=== PATIENT | female | born 2000 | race American Indian/Alaskan Native ===

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

== ENCOUNTER 2023-08-02 09:48 | Emergency (ER) | payer OTHER ==
[2023-08-02] MEDS ORDERED: SODIUM CHLORIDE 0.9% 1,000 ML IV STA (10:14)
--- NOTE | 2023-08-02 10:19 | ED ---
Dizziness HPI - General Chief Complaint: Dizziness Stated Complaint: lightheaded Time Seen by Provider: 08/02/23 10:07 Source: patient, family, RN notes reviewed Mode of arrival: ambulatory Limitations: no limitations - History of Present Illness Initial Comments: Patient is a 22-year-old female presented ER with chief complaint dizziness. Patient reports that when she woke up this morning she felt extremely dizzy and like she was about to pass out. Patient denies any syncopal episodes. Patient has no significant past medical history. Patient did report that she started her menstrual cycle recently and it is mildly heavy. She reports that she goes through about 3 tampons per day. Patient denies any recent fevers, chills, night sweats. Patient does endorse mild chest pain currently. Patient denies any headache, double or blurred vision, shortness of breath, abdominal pain, dysuria, peripheral edema. - Related Data Home Medications Medication Instructions Recorded Confirmed No Known Home Medications 08/02/23 08/02/23 Allergies Allergy/AdvReac Type Severity Reaction Status Date / Time No Known Allergies Allergy Verified 08/02/23 11:35 Review of Systems ROS Statement: Those systems with pertinent positive or pertinent negative responses have been documented in the HPI. ROS Other: All systems not noted in ROS Statement are negative. Past Medical History Past Medical History: No Reported History History of Any Multi-Drug Resistant Organisms: None Reported Past Surgical History: No Surgical Hx Reported Past Psychological History: No Psychological Hx Reported Smoking Status: Never smoker Past Alcohol Use History: None Reported Past Drug Use History: None Reported General Exam Limitations: no limitations General appearance: alert, in no apparent distress Head exam: Present: atraumatic, normocephalic, normal inspection Respiratory exam: Present: normal lung sounds bilaterally. Absent: respiratory distress, wheezes, rales, rhonchi, stridor Cardiovascular Exam: Present: regular rate, normal rhythm, normal heart sounds. Absent: systolic murmur, diastolic murmur, rubs, gallop, clicks GI/Abdominal exam: Present: soft, normal bowel sounds. Absent: distended, tenderness, guarding, rebound, rigid Back exam: Present: normal inspection Neurological exam: Present: alert, oriented X3, CN II-XII intact Psychiatric exam: Present: normal affect, normal mood Skin exam: Present: warm, pallor, other (Numerous dark red linear scars noted on forearms and upper arms. ) Course Vital Signs 08/02/23 08/02/23 08/02/23 09:49 12:34 14:05 Temperature 97.5 F L 98.2 F Pulse Rate 105 H 70 Respiratory 18 18 Rate Blood Pressure 82/55 96/66 102/70 O2 Sat by Pulse 100 98 Oximetry Medical Decision Making - Medical Decision Making Was pt. sent in by a medical professional or institution (, PA, ASSISTANT PROFESSOR OF DRAMA, urgent c are, hospital, or halfway...) When possible be specific @ -No Did you speak to anyone other than the patient for history (EMS, parent, family, police, friend...)? What history was obtained from this source @ -Mother provided some HPI Did you review nursing and triage notes (agree or disagree)? Why? @ -I reviewed and agree with nursing and triage notes Were old charts reviewed (outside hosp., previous admission, EMS record, old EKG, old radiological studies, urgent care reports/EKG's, halfway records)? Report findings @ -No old charts were reviewed Differential Diagnosis (chest pain, altered mental status, abdominal pain women, abdominal pain men, vaginal bleeding, weakness, fever, dyspnea, syncope, headache, dizziness, GI bleed, back pain, seizure, CVA, palpatations, mental health, musculoskeletal)? @ -Differential Dizziness: Benign paroxysmal positional Vertigo, Menieres disease, otitis media, acoustic neuroma, vertebrobasilar insufficiency, cerebellar stroke, encephalitis, hypovolemic, arrhythmia, coronary artery syndrome, anemia, this is not meant to be an all-inclusive list EKG interpreted by me (3pts min.). @ -As above X-rays interpreted by me (1pt min.). @ -None done CT interpreted by me (1pt min.). @ -None done U/S interpreted by me (1pt. min.). @ -None done What testing was considered but not performed or refused? (CT, X-rays, U/S, labs)? Why? @ -None What meds were considered but not given or refused? Why? @ -None Did you discuss the management of the patient with other professionals (professionals i.e. , MOSES, ASSISTANT PROFESSOR OF DRAMA, lab, RT, psych nurse, social research assistant, rn radiation oncology, teacher, chief green officer, case management assistant)? Give summary @ -No Was smoking cessation discussed for >3mins.? @ -No Was critical care preformed (if so, how long)? @ -No Were there social determinants of health that impacted care today? How? (Homelessness, low income, unemployed, alcoholism, drug addiction, transportation, low edu. Level, literacy, decrease access to med. care, half-way, rehab)? @ -No Was there de-escalation of care discussed even if they declined (Discuss DNR or withdrawal of care, Hospice)? DNR status @ -No What co-morbidities impacted this encounter? (DM, HTN, Smoking, COPD, CAD, Cancer, CVA, ARF, Chemo, Hep., AIDS, mental health diagnosis, sleep apnea, morbid obesity)? @ -None Was patient admitted / discharged? Hospital course, mention meds given and route, prescriptions, significant lab abnormalities, going to OR and other pertinent info. @ -Discharge. Patient is a 22-year-old female presented ER with chief complaint of dizziness. Upon examination, this patient's blood pressure was 82/55 repeat was 102/64. Physical exam was significant for patient was mildly pale and there were multiple healing excoriations noted on both forearms. When asked about this patient states that this is from a long time ago and she denies any current thoughts of hurting herself or others. Labs obtained in the ER were unimpressive. Urine did have a large amount of blood which is contributed to patient's current menstruation. Viral swabs obtained in the ER were negative. EKG showed normal sinus rhythm with T-wave inversions in V1-V3 otherwise no other ST segment or T-wave abnormalities present. Patient did receive 1 L of IV fluids. Orthostatic blood pressures were taken with appropriate responses to positional changes. I discussed laboratory findings with patient and her mother, at bedside. I advised patient to increase hydration and salt intake as this may be due too low blood pressure. I advised her to take positional changes slowly. Return parameters were discussed. Patient will be discharged in stable condition with follow-up to PCP. Patient and mother, at bedside, expressed understanding and agreement with care plan. Undiagnosed new problem with uncertain prognosis? @ -No Drug Therapy requiring intensive monitoring for toxicity (Heparin, Nitro, Insulin, Cardizem)? @ -No Were any procedures done? @ -No Diagnosis/symptom? @ -Dizziness Acute, or Chronic, or Acute on Chronic? @ -Acute Uncomplicated (without systemic symptoms) or Complicated (systemic symptoms)? @ -Uncomplicated Side effects of treatment? @ -No Exacerbation, Progression, or Severe Exacerbation? @ -No Poses a threat to life or bodily function? How? (Chest pain, [place], [place], pneumonia, PE, COPD, DKA, ARF, appy, cholecystitis, CVA, Diverticulitis, Homicidal, Suicidal, threat to staff... and all critical care pts) @ -No - Lab Data Result diagrams: 08/02/23 10:25 08/02/23 10:25 Lab Results 08/02/23 08/02/23 08/02/23 Range/Units 10:25 10:25 10:25 WBC 6.4 (4.0-11.0) k/uL RBC 3.92 (3.80-5.40) m/uL Hgb 12.5 (11.4-16.0) gm/dL Hct 37.1 (34.0-46.0) % MCV 94.7 (80.0-100.0) fL MCH 31.9 (25.0-35.0) pg MCHC 33.7 (31.0-37.0) g/dL RDW 12.0 (11.5-15.5) % Plt Count 234 (150-450) k/uL MPV 8.1 Sodium 139 (137-145) mmol/L Potassium 3.5 (3.5-5.1) mmol/L Chloride 105 (98-107) mmol/L Carbon Dioxide 19 L (22-30) mmol/L Anion Gap 15 mmol/L BUN 29 H (7-17) mg/dL Creatinine 0.68 (0.52-1.04) mg/dL Est GFR (CKD-EPI)AfAm >90 (>60 ml/min/1.73 sqM) Est GFR (CKD-EPI)NonAf >90 (>60 ml/min/1.73 sqM) Glucose 124 H (74-99) mg/dL Calcium 9.4 (8.4-10.2) mg/dL Total Bilirubin 0.9 (0.2-1.3) mg/dL AST 20 (14-36) U/L ALT 15 (4-34) U/L Alkaline Phosphatase 64 (38-126) U/L Total Protein 7.5 (6.3-8.2) g/dL Albumin 4.5 (3.5-5.0) g/dL Urine Color Light Yellow Urine Appearance Cloudy H (Clear) Urine pH 5.5 (5.0-8.0) Ur Specific [place] 1.018 (1.001-1.035) Urine Protein Trace H (Negative) Urine Glucose (UA) Negative (Negative) Urine Ketones Trace H (Negative) Urine Blood Large H (Negative) Urine Nitrite Negative (Negative) Urine Bilirubin Negative (Negative) Urine Urobilinogen <2.0 (<2.0) mg/dL Ur Leukocyte Esterase Negative (Negative) Urine RBC 2 (0-5) /hpf Urine WBC 4 (0-5) /hpf Ur Squamous Epith Cells 22 H (0-4) /hpf Urine Bacteria Rare H (None) /hpf Urine Mucus Occasional H (None) /hpf Influenza Type A (PCR) (Not Detectd) Influenza Type B (PCR) (Not Detectd) RSV (PCR) (Not Detectd) SARS-CoV-2 (PCR) (Not Detectd) 08/02/23 Range/Units 10:25 WBC (4.0-11.0) k/uL RBC (3.80-5.40) m/uL Hgb (11.4-16.0) gm/dL Hct (34.0-46.0) % MCV (80.0-100.0) fL MCH (25.0-35.0) pg MCHC (31.0-37.0) g/dL RDW (11.5-15.5) % Plt Count (150-450) k/uL MPV Sodium (137-145) mmol/L Potassium (3.5-5.1) mmol/L Chloride (98-107) mmol/L Carbon Dioxide (22-30) mmol/L Anion Gap mmol/L BUN (7-17) mg/dL Creatinine (0.52-1.04) mg/dL Est GFR (CKD-EPI)AfAm (>60 ml/min/1.73 sqM) Est GFR (CKD-EPI)NonAf (>60 ml/min/1.73 sqM) Glucose (74-99) mg/dL Calcium (8.4-10.2) mg/dL Total Bilirubin (0.2-1.3) mg/dL AST (14-36) U/L ALT (4-34) U/L Alkaline Phosphatase (38-126) U/L Total Protein (6.3-8.2) g/dL Albumin (3.5-5.0) g/dL Urine Color Urine Appearance (Clear) Urine pH (5.0-8.0) Ur Specific [place] (1.001-1.035) Urine Protein (Negative) Urine Glucose (UA) (Negative) Urine Ketones (Negative) Urine Blood (Negative) Urine Nitrite (Negative) Urine Bilirubin (Negative) Urine Urobilinogen (<2.0) mg/dL Ur Leukocyte Esterase (Negative) Urine RBC (0-5) /hpf Urine WBC (0-5) /hpf Ur Squamous Epith Cells (0-4) /hpf Urine Bacteria (None) /hpf Urine Mucus (None) /hpf Influenza Type A (PCR) Not Detected (Not Detectd) Influenza Type B (PCR) Not Detected (Not Detectd) RSV (PCR) Not Detected (Not Detectd) SARS-CoV-2 (PCR) Not Detected (Not Detectd) - EKG Data -: EKG Interpreted by Me EKG Comments: EKG taken at 10:10 shows a sinus rhythm with inverted Twaves in V1-V3. Ventricular rate 61, WV interval 138, QRS duration 100, QT/QTC 421/423. Disposition Clinical Impression: Dizziness Disposition: HOME SELF-CARE Condition: Stable Instructions (If sedation given, give patient instructions): Dizziness (ED) Additional Instructions: Please increase hydration and salt intake. Please return to the Emergency Department if symptoms worsen or any other concerns. Is patient prescribed a controlled substance at d/c from ED?: No Referrals: None,Stated [Primary Care Provider] - 1-2 days Time of Disposition: 13:36
[2023-08-02 10:33] LABS: HCT 37.1 % (34.0-46.0); HGB 12.5 gm/dL (11.4-16.0); MCH 31.9 pg (25.0-35.0); MCHC 33.7 g/dL (31.0-37.0); MCV 94.7 fL (80.0-100.0); Mean Platelet Volume 8.1; Platelet Count 234 k/uL (150-450); RBC 3.92 m/uL (3.80-5.40); WBC 6.4 k/uL (4.0-11.0)
[2023-08-02 10:46] VITALS: RESP 18
[2023-08-02 11:11] LABS: ALT 15 U/L (4-34); AST 20 U/L (14-36); African American GFR (CKD) >90 (>60 ml/min/1.73 sqM); Albumin 4.5 g/dL (3.5-5.0); Alkaline Phosphatase 64 U/L (38-126); Anion Gap 15 mmol/L; Blood Urea Nitrogen 29 mg/dL (7-17); Calcium 9.4 mg/dL (8.4-10.2); Carbon Dioxide 19 mmol/L (22-30); Chloride 105 mmol/L (98-107); Glucose 124 mg/dL (74-99); Non-African American GFR(CKD) >90 (>60 ml/min/1.73 sqM); Potassium 3.5 mmol/L (3.5-5.1); Sodium 139 mmol/L (137-145); Total Bilirubin 0.9 mg/dL (0.2-1.3); Total Protein 7.5 g/dL (6.3-8.2)
[2023-08-02 13:07] LABS: Appearance,Urine Cloudy (Clear); Bacteria,Urine Rare /hpf; Bilirubin,Urine Negative (Negative); Blood,Urine Large (Negative); Color,Urine Light Yellow; Glucose,Urine (UA) Negative (Negative); Ketones,Urine Trace (Negative); Leukocyte Esterase,Urine Negative (Negative); Mucus,Urine Occasional /hpf; Nitrite,Urine Negative (Negative); PH, Urine 5.5 (5.0-8.0); Protein,Urine Trace (Negative); RBC,Urine 2 /hpf (0-5); Specific Gravity,Urine 1.018 (1.001-1.035); Squamous Epithelial Cell,Urine 22 /hpf (0-4); Urobilinogen,Urine <2.0 mg/dL (<2.0); WBC,Urine 4 /hpf (0-5)
[2023-08-02 14:09] VITALS: BP 102/70; PULSE 70; TEMP 98.2
== END 2023-08-02 14:08 | disposition home or self-care (01) ==
LOC: EC 09:48
DX: R42 Dizziness and giddiness (principal); Z20.822 Contact with and (suspected) exposure to COVID-19
CPT/HCPCS: 36415; 80053; 81001; 85027; 87636; 93005; 96360; 96361; 99284

== ENCOUNTER 2023-11-10 16:11 | Inpatient (IN) | payer MEDICAID, OTHER ==
--- NOTE | 2023-11-10 16:53 | ED ---
General Adult HPI - General Chief complaint: Psychiatric Symptoms Stated complaint: Suicidal Time Seen by Provider: 11/10/23 16:30 Source: patient, RN notes reviewed Mode of arrival: ambulatory Limitations: no limitations - History of Present Illness Initial comments: 23-year-old female presents to the emergency department with mother for evaluation of suicidal ideation. Patient states that she has had suicidal thoughts for a long time. Reports that her thoughts have become more vivid and she is afraid that she will act on them. She does report that she was recently started on Zoloft about 1 month ago. Does report an extensive history of self- harm with scars to her arms and legs from prior cutting. - Related Data Home Medications Medication Instructions Recorded Confirmed Sertraline [Zoloft] 25 mg PO DAILY 11/10/23 11/10/23 Allergies Allergy/AdvReac Type Severity Reaction Status Date / Time No Known Allergies Allergy Verified 11/10/23 21:17 Review of Systems ROS Statement: Those systems with pertinent positive or pertinent negative responses have been documented in the HPI. ROS Other: All systems not noted in ROS Statement are negative. Past Medical History Past Medical History: No Reported History History of Any Multi-Drug Resistant Organisms: None Reported Past Surgical History: No Surgical Hx Reported Past Psychological History: Depression Smoking Status: Never smoker Past Alcohol Use History: None Reported Past Drug Use History: None Reported General Exam Limitations: no limitations General appearance: alert, in no apparent distress, anxious Head exam: Present: atraumatic, normocephalic, normal inspection Eye exam: Present: normal appearance, PERRL, EOMI. Absent: scleral icterus, conjunctival injection, periorbital swelling ENT exam: Present: normal exam, mucous membranes moist Neck exam: Present: normal inspection. Absent: tenderness, meningismus, lymphadenopathy Respiratory exam: Present: normal lung sounds bilaterally. Absent: respiratory distress, wheezes, rales, rhonchi, stridor Cardiovascular Exam: Present: normal rhythm, tachycardia, normal heart sounds. Absent: systolic murmur, diastolic murmur, rubs, gallop, clicks Extremities exam: Present: full ROM, normal capillary refill, other (scars from self harm to arms and legs) Back exam: Present: normal inspection Neurological exam: Present: alert, oriented X3 Psychiatric exam: Present: normal affect, normal mood Skin exam: Present: warm, dry, intact, other (erythematous scars to forearms and legs). Absent: normal color, rash Course Vital Signs 11/10/23 11/10/23 16:24 16:57 Temperature 98.2 F 98.5 F Pulse Rate 101 H 101 H Respiratory 18 18 Rate Blood Pressure 148/78 127/73 O2 Sat by Pulse 99 98 Oximetry Medical Decision Making - Medical Decision Making Was pt. sent in by a medical professional or institution (, [employer], QUILLER MACHINE FIXER, urgent care, hospital, or fpc...) When possible be specific @ -[No] Did you speak to anyone other than the patient for history (EMS, parent, family, police, friend...)? What history was obtained from this source @ -[No] Did you review nursing and triage notes (agree or disagree)? Why? @ -[I reviewed and agree with nursing and triage notes] Were old charts reviewed (outside hosp., previous admission, EMS record, old EKG, old radiological studies, urgent care reports/EKG's, fpc records)? Report findings @ -[No old charts were reviewed] Differential Diagnosis (chest pain, altered mental status, abdominal pain women, abdominal pain men, vaginal bleeding, weakness, fever, dyspnea, syncope, he adache, dizziness, GI bleed, back pain, seizure, CVA, palpatations, mental health, musculoskeletal)? @ -[Differential Mental Health Depression, anxiety, bipolar, psychosis, schizophrenia, borderline personality, situational depression, adjustment disorder, behavioral disorder, brain tumor, malingering, substance abuse, encephalopathy, medication reaction, dementia, hypothyroidism, degenerative neurologic disorder, lupus.... This is not meant to be all-inclusive list] EKG interpreted by me (3pts min.). @ -[none] X-rays interpreted by me (1pt min.). @ -[None done] CT interpreted by me (1pt min.). @ -[None done] U/S interpreted by me (1pt. min.). @ -[None done] What testing was considered but not performed or refused? (CT, X-rays, U/S, labs)? Why? @ -[None] What meds were considered but not given or refused? Why? @ -[None] Did you discuss the management of the patient with other professionals (professionals i.e. , PA, QUILLER MACHINE FIXER, lab, RT, psych nurse, social media marketing manager, membership assistant, teacher, catapult and arresting gear officer, pillowcase maker)? Give summary @ -[No] Was smoking cessation discussed for >3mins.? @ -[No] Was critical care preformed (if so, how long)? @ -[No] Were there social determinants of health that impacted care today? How? (Homelessness, low income, unemployed, alcoholism, drug addiction, transportation, low edu. Level, literacy, decrease access to med. care, prison, rehab)? @ -[No] Was there de-escalation of care discussed even if they declined (Discuss DNR or withdrawal of care, Hospice)? DNR status @ -[No] What co-morbidities impacted this encounter? (DM, HTN, Smoking, COPD, CAD, Cancer, CVA, ARF, Chemo, Hep., AIDS, mental health diagnosis, sleep apnea, morbid obesity)? @ -[None] Was patient admitted / discharged? Hospital course, mention meds given and route, prescriptions, significant lab abnormalities, going to OR and other pertinent info. @ -[Patient presented to the emergency department for mental health evaluation. Admits to suicidal ideation. Pending EPS evaluation. EPS recommend inpatient treatment. ] Undiagnosed new problem with uncertain prognosis? @ -[No] Drug Therapy requiring intensive monitoring for toxicity (Heparin, Nitro, Insulin, Cardizem)? @ -[No] Were any procedures done? @ -[No] Diagnosis/symptom? @ -[suicidal ideation] Acute, or Chronic, or Acute on Chronic? @ -acute Uncomplicated (without systemic symptoms) or Complicated (systemic symptoms)? @ -[default] Side effects of treatment? @ -[No] Exacerbation, Progression, or Severe Exacerbation? @ -[No] Poses a threat to life or bodily function? How? (Chest pain, [place], [place], pneumonia, PE, COPD, DKA, ARF, appy, cholecystitis, CVA, Diverticulitis, Homicidal, SuicidalNoyes suicidalf... and all critical care pts) @ -[yes suicidal] - Lab Data Result diagrams: 11/11/23 07:00 11/11/23 07:00 Lab Results 11/10/23 11/10/23 11/10/23 Range/Units 19:40 20:20 20:20 Urine HCG, Qual Not Detected (Not Detectd) Urine Opiates Screen Not Detected (NotDetected) Ur Oxycodone Screen Not Detected (NotDetected) Urine Methadone Screen Not Detected (NotDetected) Ur Barbiturates Screen Not Detected (NotDetected) U Tricyclic Antidepress Not Detected (NotDetected) Ur Phencyclidine Scrn Not Detected (NotDetected) Ur Amphetamines Screen Not Detected (NotDetected) U Methamphetamines Scrn Not Detected (NotDetected) U Benzodiazepines Scrn Not Detected (NotDetected) Urine Cocaine Screen Not Detected (NotDetected) U Marijuana (THC) Screen Not Detected (NotDetected) SARS-CoV-2 (PCR) Not Detected (Not Detectd) Disposition Clinical Impression: Suicidal ideation Disposition: TRANSFER TO PSYCH HOSP/UNIT Condition: Stable Is patient prescribed a controlled substance at d/c from ED?: No
[2023-11-10 20:54] LABS: Amphetamine Screen,Urine Not Detected (NotDetected); Barbiturate Screen,Urine Not Detected (NotDetected); Benzodiazepines Screen,Urine Not Detected (NotDetected); Cocaine Screen,Urine Not Detected (NotDetected); Methadone Screen, Urine Not Detected (NotDetected); Opiate Screen,Urine Not Detected (NotDetected); Oxycodone Screen, Urine Not Detected (NotDetected); Phencyclidine Screen,Urine Not Detected (NotDetected); Tricyclic Antidepressant,Urine Not Detected (NotDetected); Urn Cannabinoid Scrn Not Detected (NotDetected)
[2023-11-10] MEDS ORDERED: ACETAMINOPHEN TAB 325 MG TAB PO PRN (21:49)
[2023-11-10] MEDS ORDERED: HALOPERIDOL LACTATE 5 MG/ML 1 ML VIAL IM PRN (21:49)
[2023-11-10] MEDS ORDERED: haloperidoL 5 MG TAB PO PRN (21:49)
[2023-11-10] MEDS ORDERED: hydrOXYzine HCL 50 MG/ML 1 ML VIAL IM PRN (21:52)
[2023-11-11 08:01] LABS: ALT 12 U/L (4-34); AST 19 U/L (14-36); African American GFR (CKD) >90 (>60 ml/min/1.73 sqM); Albumin 4.5 g/dL (3.5-5.0); Alkaline Phosphatase 54 U/L (38-126); Anion Gap 9 mmol/L; Blood Urea Nitrogen 11 mg/dL (7-17); Calcium 9.3 mg/dL (8.4-10.2); Carbon Dioxide 24 mmol/L (22-30); Chloride 107 mmol/L (98-107); Glucose 83 mg/dL (74-99); Non-African American GFR(CKD) >90 (>60 ml/min/1.73 sqM); Sodium 140 mmol/L (137-145); Total Bilirubin 1.2 mg/dL (0.2-1.3); Total Protein 7.5 g/dL (6.3-8.2)
[2023-11-11 08:02] LABS: Basophils # (A) 0.1 k/uL (0-0.2); Basophils % (A) 1 %; Eosinophils # (A) 0.1 k/uL (0-0.7); Eosinophils % (A) 2 %; HCT 37.4 % (34.0-46.0); HGB 12.6 gm/dL (11.4-16.0); Lymphocytes # (A) 2.1 k/uL (1.0-4.8); Lymphocytes % (A) 36 %; MCHC 33.6 g/dL (31.0-37.0); MCV 95.3 fL (80.0-100.0); Mean Platelet Volume 8.1; Monocytes # (A) 0.3 k/uL (0-1.0); Monocytes % (A) 6 %; Neutrophils # (A) 3.1 k/uL (1.3-7.7); Neutrophils % (A) 54 %; Platelet Count 270 k/uL (150-450); RBC 3.93 m/uL (3.80-5.40); RDW 12.6 % (11.5-15.5); WBC 5.7 k/uL (3.8-10.6)
--- NOTE | 2023-11-11 10:33 | P.HP ---
Psychiatric H&P - . H&P Date: 11/11/23 History & Physical: Allergies Allergy/AdvReac Type Severity Reaction Status Date / Time No Known Allergies Allergy Verified 11/10/23 21:17 Vital Signs Temp 97.8 F 11/11/23 08:37 Pulse 108 H 11/11/23 08:37 Resp 16 11/11/23 08:37 BP 169/98 11/11/23 08:37 Pulse Ox 98 11/10/23 16:57 FiO2 Intake & Output 11/10/23 11/11/23 11/11/23 18:59 06:59 18:59 Weight 58.967 kg 58 kg Laboratory Last Values WBC 5.7 k/uL (3.8-10.6) 11/11/23 07:00 RBC 3.93 m/uL (3.80-5.40) 11/11/23 07:00 Hgb 12.6 gm/dL (11.4-16.0) 11/11/23 07:00 Hct 37.4 % (34.0-46.0) 11/11/23 07:00 MCV 95.3 fL (80.0-100.0) 11/11/23 07:00 MCH 32.0 pg (25.0-35.0) 11/11/23 07:00 MCHC 33.6 g/dL (31.0-37.0) 11/11/23 07:00 RDW 12.6 % (11.5-15.5) 11/11/23 07:00 Plt Count 270 k/uL (150-450) 11/11/23 07:00 MPV 8.1 11/11/23 07:00 Neutrophils % 54 % 11/11/23 07:00 Lymphocytes % 36 % 11/11/23 07:00 Monocytes % 6 % 11/11/23 07:00 Eosinophils % 2 % 11/11/23 07:00 Basophils % 1 % 11/11/23 07:00 Neutrophils # 3.1 k/uL (1.3-7.7) 11/11/23 07:00 Lymphocytes # 2.1 k/uL (1.0-4.8) 11/11/23 07:00 Monocytes # 0.3 k/uL (0-1.0) 11/11/23 07:00 Eosinophils # 0.1 k/uL (0-0.7) 11/11/23 07:00 Basophils # 0.1 k/uL (0-0.2) 11/11/23 07:00 Sodium 140 mmol/L (137-145) 11/11/23 07:00 Potassium 4.0 mmol/L (3.5-5.1) 11/11/23 07:00 Chloride 107 mmol/L (98-107) 11/11/23 07:00 Carbon Dioxide 24 mmol/L (22-30) 11/11/23 07:00 Anion Gap 9 mmol/L 11/11/23 07:00 BUN 11 mg/dL (7-17) 11/11/23 07:00 Creatinine 0.67 mg/dL (0.52-1.04) 11/11/23 07:00 Est GFR (CKD-EPI)AfAm >90 (>60 ml/min/1.73 sqM) 11/11/23 07:00 Est GFR (CKD-EPI)NonAf >90 (>60 ml/min/1.73 sqM) 11/11/23 07:00 Glucose 83 mg/dL (74-99) 11/11/23 07:00 Calcium 9.3 mg/dL (8.4-10.2) 11/11/23 07:00 Total Bilirubin 1.2 mg/dL (0.2-1.3) 11/11/23 07:00 AST 19 U/L (14-36) 11/11/23 07:00 ALT 12 U/L (4-34) 11/11/23 07:00 Alkaline Phosphatase 54 U/L (38-126) 11/11/23 07:00 Total Protein 7.5 g/dL (6.3-8.2) 11/11/23 07:00 Albumin 4.5 g/dL (3.5-5.0) 11/11/23 07:00 TSH 3.510 mIU/L (0.465-4.680) 11/11/23 07:00 Urine HCG, Qual Not Detected (Not Detectd) 11/10/23 20:20 Urine Opiates Screen Not Detected (NotDetected) 11/10/23 20:20 Ur Oxycodone Screen Not Detected (NotDetected) 11/10/23 20:20 Urine Methadone Screen Not Detected (NotDetected) 11/10/23 20:20 Ur Barbiturates Screen Not Detected (NotDetected) 11/10/23 20:20 U Tricyclic Antidepress Not Detected (NotDetected) 11/10/23 20:20 Ur Phencyclidine Scrn Not Detected (NotDetected) 11/10/23 20:20 Ur Amphetamines Screen Not Detected (NotDetected) 11/10/23 20:20 U Methamphetamines Scrn Not Detected (NotDetected) 11/10/23 20:20 U Benzodiazepines Scrn Not Detected (NotDetected) 11/10/23 20:20 Urine Cocaine Screen Not Detected (NotDetected) 11/10/23 20:20 U Marijuana (THC) Screen Not Detected (NotDetected) 11/10/23 20:20 SARS-CoV-2 (PCR) Not Detected (Not Detectd) 11/10/23 19:40 11/11/23 08:56 IDENTIFYING DATA: Patient is a single, unemployed, 23-year-old - female who is presenting with suicidal ideation HPI: Patient was brought into the ED by her mother due to suicidal ideation. She was noted to have several superficial lacerations on bilateral forearms and legs. She endorsed suicidal ideation that had been worsening over the past few weeks and reported having increased urge to act on suicidal ideation. She was guarded while in the ED and would not disclose a plan but revealed that it is a "graphic "plan. Ruby is hesitant, often tearful, and has eye contact darting around. She says she has been having low mood over the past 3 years. She says a stressor was her father dying 2 years ago from overdose. She reports having a sense of purposelessness, hopelessness, and not being aware of what she should do with her life. Since graduating high school, she says that she has not been doing anything with her life. She reports sleeping from around 6AM-1PM. She denies trouble with falling asleep or staying asleep. She endorses low energy, low concentration, low motivation, and low appetite ongoing for the past 1 year. She use to enjoy drawing, writing, and watching TV, but says these have not been enjoyable. Patient was started on Zoloft 25 mg 1 month ago. Since being on this medication, she states that she has found herself to be able to express herself more. However, she has noticed her suicidal ideation to have become "more vivid ". Patient currently admits to suicidal ideation with a plan to cut herself deeply. She endorses anxiety. In particular, she is worried about being scrutinized by others, fears that she will embarrass herself, and states she is particularly anxious when interacting with groups of people. She reports this has been ongoing since her childhood. She admits to paranoia about others speaking about her and worries about getting bullied. She states that she is not close to her family members and does not speak with them often at this time. Although patient has a family history of bipolar disorder, she denies symptoms of irene. In psychiatric review of systems, she denies homicidal ideation. She denies access to weapons. She denies auditory and visual hallucinations. PSYCH HX: Previous psychiatrist: [facility] Past tx: Zoloft 25 mg for the past 1 month - she felt it allowed her to express herself more. She has also felt SI has become more vivid. Hospitalizations: Denies past hospitalizations NSSI: Cutting since she was 13 years old SA: Denies PMH: Denies chronic medical issues ALLERGIES: NKDA Head injuries: Denies Seizures: Denies SUBSTANCE HX: Alcohol: Denies Tobacco: Denies Cannabis: Denies Denies using other substances SOCIAL/LEGAL HX: Patient reports having been born in [facility] and says she currently resides with her mother. She says she has 4 siblings. Her father used to be a insurance producer but was on Social Security income after an injury. She says he 2 years ago due using a combination of alcohol and other substances in an overdose. Her mother works in a half-way. Patient is not currently employed. She was never and says she is currently single. Highest level of education: 12th grade Legal problems: Denies FAM PSYCH HX: Father: bipolar disorder, alcohol use disorder, OD Older Sister: bipolar disorder Suicide attempts: Denies MENTAL STATUS EXAM: General Appearance: Patient appears to be stated age is alert, directable, and attempts to cooperate. Patient appears to have poor hygiene and grooming. Behavior: Patient is seated without any agitated behavior. Eyes darting left and right, poor eye contact Speech: Patient's speech is hesitant, low volume, almost muttered Mood/Affect: Patient reports their mood is depressed, affect is congruent and tearful Suicidality/Homicidality: Patient denies having any homicidal ideation intent or plan. Endorses suicidal ideation Perceptions: Patient denies any visual hallucinations and denies any auditory hallucinations Though content/process: Mostly linear and other times slightly unrelated to question; some paranoia Memory and concentration: AOX3, grossly intact for the purposes of this session. Judgment and insight: Fair STRENGTHS/WEAKNESSES: Strength is seeking help and no substance use. Weakness is severity of symptoms INTELLECT: average IMPRESSIONS: Depressive disorder, unspecified (bipolar disorder vs prodromal symptoms vs MDD) Social anxiety disorder PLAN: -Patient is admitted under voluntary status to MHU for stabilization of psychiatric symptoms and safety. Patient signed adult voluntary form and medica tion consent and is placed in patient's chart. -Medications : - Start Lexapro 5 mg daily for mood. Will monitor carefully for irene - Start melatonin 5 mg qHS for sleep. Discussed sleep hygiene & circadian rhythm -Patient was counselled on substance abuse and recommend continuing abstinence from alcohol -Patient was informed of the risks, benefits and side effects of the medication and patient verbally consented to taking the medications. Patient signed med consent form and was placed in chart. -Internal Medicine consult to perform medical evaluation and physical. -SW on board for discharge planning. Encourage patient to participate in groups to work on coping skills. 11/11/23 08:59 ``
[2023-11-11] MEDS: ESCITALOPRAM 5 MG TAB PO SCH (12:34)
[2023-11-11] MEDS: MELATONIN 5 MG TABLET PO SCH (21:31)
--- NOTE | 2023-11-12 01:57 | P.CONS ---
History of Present Illness - Reason for Consult Consult date: 11/12/23 - History of Present Illness The patient is a 23-year-old female with no known PMH who had presented to the emergency room with complaints of depression and suicidal ideation. The patient was admitted to the mental health unit where she was seen and evaluated accompanied by mental health unit RN. The patient denied any physical complaints at the time of interview. She denied experiencing chest discomfort, shortness of breath, fever, chills, cough, nausea, vomiting, abdominal pain, diarrhea. She also denied tobacco, alcohol, or substance use. She denies any prior medical conditions. Review of systems: Pertinent positives and negatives as discussed in HPI, a complete review of systems was performed and all other systems are negative. Physical examination: General: non toxic, no distress, appears at stated age, normal weight Derm: no unusual rashes/lesions, no unusual ecchymoses, warm, dry Head: atraumatic, normocephalic, symmetric Eyes: EOMI, no lid lag, anicteric sclera ENT: Nose and ears atraumatic, no thrush, no pharyngeal erythema Neck: trachea midline, supple Mouth: no lip lesion, mucus membranes moist Cardiovascular: S1S2 reg, no murmur, no edema Lungs: CTA bilateral, no rhonchi, no rales , no accessory muscle use Abdominal: soft, nontender to palpation, no guarding Ext: no gross muscle atrophy, no contractures, Neuro: No gross focal neuro deficits noted Psych: Alert, oriented, appropriate affect Assessment: Depression and suicidal ideation Imaging: EKG in the emergency room revealed sinus rhythm at 84 bpm with T wave inversion leads V1 to V3 as reviewed by me. Data Review: Laboratory evaluation was reviewed and revealed WBC count 5.7, hemoglobin 12.6, sodium 140, potassium 4.0, BUN 11, creatinine 0.67, urine toxicology unremarkable. Plan: Defer management of depression and suicidal ideation to the primary psychiatry service Thank you for allowing us to participate in the care of this patient. We will follow peripherally. Do not hesitate to contact us with questions. Someone can be reached from the [facility] hospitalist group at all hours of the day at [phone]. Past Medical History Past Medical History: No Reported History History of Any Multi-Drug Resistant Organisms: None Reported Past Surgical History: No Surgical Hx Reported Past Anesthesia/Blood Transfusion Reactions: No Reported Reaction Past Psychological History: Depression Smoking Status: Never smoker Past Alcohol Use History: None Reported Past Drug Use History: None Reported - Past Family History Mother Family Medical History: Hyperlipidemia Medications and Allergies Home Medications Medication Instructions Recorded Confirmed Type Sertraline [Zoloft] 25 mg PO DAILY 11/10/23 11/10/23 History Allergies Allergy/AdvReac Type Severity Reaction Status Date / Time No Known Allergies Allergy Verified 11/10/23 21:17 Physical Exam Vitals: Vital Signs Temp Pulse Resp BP 11/11/23 08:37 97.8 F 108 H 16 169/98 Intake and Output 11/11/23 11/11/23 11/12/23 14:59 22:59 06:59 Other: Weight 58 kg Results CBC & Chem 7: 11/11/23 07:00 11/11/23 07:00
--- NOTE | 2023-11-12 10:37 | P.PN ---
Progress Note - Text Progress Note Date: 11/12/23 Interval History: Patient was agreeable to speak with financial underwriter bedside. Ruby continues to be i solating to her room and appears to be restless during assessment due to anxiety. She reports that her mood is "fine". She asks about discharge and was encouraged to work on coping skills and to go over the fears of the future that contributed to her recent exacerbation in depression and anxiety. Discussed mindful breathing exercises for anxiety. Patient reports having issues with falling asleep last night and was agreeable with trazodone being added today. She reports reduced appetite and was encouraged to eat regular meals. At this time patient denies any suicidal or homicidal ideation, intent or plan. Patient denies any auditory, visual hallucinations and denies any paranoia or delusions. Patient denies any side effects from the medications and has been compliant with meds. Vital Signs Temp 97.8 F 11/11/23 08:37 Pulse 108 H 11/11/23 08:37 Resp 16 11/11/23 08:37 BP 169/98 11/11/23 08:37 Pulse Ox 98 11/10/23 16:57 FiO2 Intake & Output 11/11/23 11/12/23 11/12/23 18:59 06:59 18:59 Weight 58 kg Mental Status Exam: General Appearance: Patient appears to be stated age is alert, directable, and cooperative. Fair hygiene and poor grooming. Wearing pants and a shirt. Behavior: Restless, fidgeting, eyes darting left and right with poor eye contact Speech: Patient's speech is fluent and nonpressured. Speech: Patient's speech is hesitant, low volume, almost muttered Mood/Affect: Patient reports their mood is depressed, affect is congruent and tearful Suicidality/Homicidality: Patient denies having any homicidal ideation intent or plan. Denies suicidal ideation Perceptions: Patient denies any visual hallucinations and denies any auditory hallucinations Though content/process: Mostly linear and other times slightly unrelated to question; some paranoia Memory and concentration: AOX3, grossly intact for the purposes of this session. Judgment and insight: Fair Assessment Depressive disorder, unspecified (prodromal symptoms vs MDD unlikely to be bipolar) Social anxiety disorder PLAN: -Patient is admitted under voluntary status to MHU for stabilization of psychiatric symptoms and safety. Patient signed adult voluntary form and medication consent and is placed in patient's chart. -Medications : - Continue Lexapro 5 mg daily for mood. Will monitor carefully for irene - Continue melatonin 5 mg qHS for sleep. Discussed sleep hygiene & circadian rhythm - Start trazodone 50 mg QHS for sleep -Discussed mindful breathing strategies and square breathing meditation -Patient was informed of the risks, benefits and side effects of the medication and patient verbally consented to taking the medications. Patient signed med consent form and was placed in chart. -Internal Medicine consult to perform medical evaluation and physical. -SW on board for discharge planning. Encourage patient to participate in groups to work on coping skills.
[2023-11-12] MEDS: traZODone HCL 50 MG TAB PO SCH (21:07)
--- NOTE | 2023-11-13 11:50 | P.PN ---
Progress Note - Text Progress Note Date: 11/13/23 Interval History: Patient was seen wandering the hallways and was directable and agreeable to milo louis with senior grant writer in the office. Patient states that her mood is "fine". Patient very guarded and hesitant. Patient has poor eye contact, very soft tone of voice. Patient states that she has been to one group. Patient states that she is sleeping ok, and eating her meals. Patient was minimizing her symptoms. When asked about delusions and paranoia patient did not want to explain them. Denies any changes or appetite, states that she is sleeping fairly. At this time patient denies any suicidal or homicidal ideations, intent or plan. Patient denies any auditory, visual hallucinations and denies any paranoia. Patient denies any side effects from the medications and has been compliant with meds. Mental Status Exam: General Appearance: Patient appears to be stated age is alert, directable, and cooperative. Fair hygiene and grooming. Wearing pants and a shirt. Behavior: Restless, fidgeting, eyes darting left and right , swaying in chair, with poor eye contact, childlike Speech: Patient's speech is fluent and nonpressured. Speech: Patient's speech is hesitant, low volume, almost muttered Mood/Affect: Patient reports their mood is depressed, affect is congruent Suicidality/Homicidality: Patient denies having any homicidal ideation intent or plan. Denies suicidal ideation Perceptions: Patient denies any visual hallucinations and denies any auditory hallucinations Though content/process: Mostly linear and other times slightly unrelated to question; some paranoia Memory and concentration: AOX3, grossly intact for the purposes of this session. Judgment and insight: Fair Assessment Depressive disorder, unspecified (prodromal symptoms vs MDD unlikely to be bipolar) Social anxiety disorder PLAN: -Patient is admitted under voluntary status to MHU for stabilization of psychia tric symptoms and safety. Patient signed adult voluntary form and medication consent and is placed in patient's chart. -Medications : increase Lexapro 10 mg daily for mood. melatonin 5 mg qHS for sl eep, trazodone 50 mg QHS for sleep Add Ablilfy 2.5 mg daily for mood stabilization/psychosis -SW on board for discharge planning. Encourage patient to participate in groups to work on coping skills.
[2023-11-13] MEDS: ARIPiprazole 5 MG TAB PO SCH (11:56)
[2023-11-13] MEDS: ESCITALOPRAM 5 MG TAB PO STA (11:56)
[2023-11-14] MEDS: ESCITALOPRAM 10 MG TAB PO SCH (08:35)
--- NOTE | 2023-11-14 11:19 | P.PN ---
Progress Note - Text Progress Note Date: 11/14/23 Interval History: Patient was seen wandering the hallways and was directable and agreeable to sp heriberto with underwriter solicitation director in the office. Patient states that she feels tired and sick. Reported by nursing staff that she is not going to meals. Patient very guarded and hesitant. Patient has very soft tone of voice. Patient states she slept around 7 hours last night. Patient was minimizing her symptoms. Patient is focused on discharge. She can not sit still in the chair. Very fidgety. Moving her feet around, no eye contact. Looking at the floor. Patient is not attending groups, underwriter solicitation director explained the importance of attending them, and getting out of her room. Patient continues to isolate in her room and not socializing with any other patients. At this time patient denies any suicidal or homicidal ideations, intent or plan. Patient Aims that she is showering every other day. denies any auditory, visual hallucinations and denies any paranoia. Patient denies any side effects from the medications and has been compliant with meds. Mental Status Exam: General Appearance: Patient appears to be stated age is alert, directable, and cooperative. Fair hygiene and grooming. Wearing pants and a shirt. Behavior: Restless, fidgeting, eyes darting left and right , swaying in chair, with poor eye contact, childlike Speech: Patient's speech is fluent and nonpressured. Speech: Patient's speech is hesitant, low volume, almost muttered Mood/Affect: Patient reports their mood is depressed, affect is congruent Suicidality/Homicidality: Patient denies having any homicidal ideation intent or plan. Denies suicidal ideation Perceptions: Patient denies any visual hallucinations and denies any auditory hallucinations Though content/process: Mostly linear and other times slightly unrelated to question; some paranoia Memory and concentration: AOX3, grossly intact for the purposes of this session. Judgment and insight: poor Assessment Depressive disorder, unspecified (prodromal symptoms vs MDD unlikely to be bipolar) Social anxiety disorder PLAN: -Patient is admitted under voluntary status to MHU for stabilization of psychiatric symptoms and safety. Patient signed adult voluntary form and medication consent and is placed in patient's chart. -Medications : Lexapro 10 mg daily for mood. melatonin 5 mg qHS for sleep, trazodone 50 mg QHS for sleep, increase Ablilfy 5 mg daily for mood stabilization/psychosis -SW on board for discharge planning. Encourage patient to participate in groups to work on coping skills. Possible discharge the end of the week, if patient improves psychiatrically.
[2023-11-14] MEDS: ARIPiprazole 5 MG TAB PO ONE (11:24)
[2023-11-15 07:41] LABS: Appearance,Urine Clear (Clear); Bilirubin,Urine Negative (Negative); Blood,Urine Negative (Negative); Color,Urine Colorless; Glucose,Urine (UA) Negative (Negative); Ketones,Urine 2+ (Negative); Leukocyte Esterase,Urine Negative (Negative); Nitrite,Urine Negative (Negative); PH, Urine 6.5 (5.0-8.0); Protein,Urine Negative (Negative); Specific Gravity,Urine 1.007 (1.001-1.035); Urobilinogen,Urine <2.0 mg/dL (<2.0)
[2023-11-15] MEDS: ARIPiprazole 5 MG TAB PO SCH ×2 (08:29→21:06)
[2023-11-15 11:56] VITALS: BMI 22.4
[2023-11-15] MEDS ORDERED: MELATONIN 3 MG TABLET PO SCH (21:00)
[2023-11-15] MEDS: MELATONIN 5 MG TABLET PO SCH (21:06)
--- NOTE | 2023-11-16 11:44 | P.PN ---
Progress Note - Text Progress Note Date: 11/15/23 Interval History: Patient was seen in her room, and was directable and agreeable to speak with devin martel in the office. Patient states that she feels super tired today, and claims to sleep well at night. Patient stated she ate breakfast this morning. She isolates herself during meals, and eats in the hallway. Patient laughs inappropriately randomly during the interview. Patient states her mood and anxiety are "fine". Staffing Consultant asked patient about her delusions of her life being hacked and used for a TV show. She states she can not explain exactly why she thought this, and she thinks that her life was a live stream, on the internet, and that there was synchronies of that and her life. Patient admits to cutting, because she feels lonely, and has always self harmed, just more the past few months. Patient continues to isolate in her room and not socializing with any other patients. She states that she feels that she does not belong here, and she thinks that she just needs her medications. She states that her therapist said inpatient treatment is not good for someone who has social anxiety. Staffing Consultant explained to the patient how serious her suicide attempt was, and explained the importance of participating in the milieu. Patient verbalized understanding. At this time patient denies any suicidal or homicidal ideations, intent or plan. Patient claims that she is showering every other day, however, it is not noted that she does. She denies any auditory, visual hallucinations and denies any paranoia. Patient denies any side effects from the medications and has been compliant with meds. Mental Status Exam: General Appearance: Patient appears to be stated age is alert, directable, and cooperative. Fair hygiene and grooming. Wearing pants and a shirt. Behavior: Restless, fidgeting, no eye contact , swaying in chair, with poor eye contact, kicking her feet, childlike defiant Speech: Patient's speech is fluent and nonpressured. Speech: Patient's speech is hesitant, low volume, almost muttered, defiant Mood/Affect: Patient reports their mood is depressed, affect is congruent Suicidality/Homicidality: Patient denies having any homicidal ideation intent or plan. Denies suicidal ideation Perceptions: Patient denies any visual hallucinations and denies any auditory hallucinations Though content/process: Mostly linear and other times slightly unrelated to question; some paranoia Memory and concentration: AOX3, grossly intact for the purposes of this session. Judgment and insight: poor Assessment Depressive disorder, unspecified (prodromal symptoms vs MDD unlikely to be bipolar) Social anxiety disorder PLAN: -Patient is admitted under voluntary status to MHU for stabilization of psychiatric symptoms and safety. Patient signed adult voluntary form and medication consent and is placed in patient's chart. -Medications : change Lexapro 10 mg qhs for mood. melatonin 5 mg qHS for sleep, trazodone 50 mg QHS for sleep, change and increase Ablilfy 7.5 mg qhs for mood stabilization/psychosis -SW on board for discharge planning. Encourage patient to participate in groups to work on coping skills. Possible discharge the end of the week, if patient improves psychiatrically.
--- NOTE | 2023-11-16 11:44 | P.PN ---
Progress Note - Text Progress Note Date: 11/16/23 Interval History: Patient was seen in her room, and was directable and agreeable to speak with devin martel in the office. Patient states that she feels tired again today, and claims to have slept last night. Patient states she does not know how she feels. She continues to laugh inappropriately during the interview. When advertising copy writer asked why she was laughing, she stated "I don't know". Patient continues to isolate to her room. She states she just wants to go home. Patient states she is anxious. At this time patient denies any suicidal or homicidal ideations, intent or plan. Patient is not caring for ADL's. Not showering, not brushing her hair. She denies any auditory, visual hallucinations and denies any paranoia. Patient denies any side effects from the medications and has been compliant with meds. she is continuing to keep to herself in her room and not socializing with others. Mental Status Exam: General Appearance: Patient appears to be stated age is alert, directable, and cooperative. Poor hygiene and grooming. Wearing pants and a shirt. Behavior: Restless, fidgeting, no eye contact , swaying in chair, kicking her feet, childlike defiant. laughs at times. Speech: Patient's speech is fluent and nonpressured. Mood/Affect: Patient reports their mood is "ok", affect is congruent and constricted Suicidality/Homicidality: Patient denies having any homicidal ideation intent or plan. Denies suicidal ideation Perceptions: Patient denies any visual hallucinations and denies any auditory hallucinations Though content/process: Mostly linear and other times slightly unrelated to question; some paranoia, guarded. Memory and concentration: AOX3, grossly intact for the purposes of this session. Judgment and insight: poor Assessment: Depressive disorder, unspecified (prodromal symptoms vs MDD unlikely to be bipolar) Social anxiety disorder PLAN: -Patient is admitted under voluntary status to [facility] for stabilization of psychiatric symptoms and safety. Patient signed adult voluntary form and medication consent and is placed in patient's chart. -Medications : Lexapro 10 mg qhs for mood. melatonin 5 mg qHS for sleep, trazodone 50 mg QHS for sleep, increase Ablilfy 10 mg qhs for mood stabilization/psychosis -SW on board for discharge planning. Encourage patient to participate in groups to work on coping skills. Likely keep patient over the weekend, until she improves psychiatrically, likely discharge next week. [facility] logistics supply officer will be notified to partake in meeting tomorrow with the team to discuss treatment planning and patient's baseline.
[2023-11-16] MEDS: hydrOXYzine pamoate 25 MG CAP PO PRN (21:18)
[2023-11-16] MEDS: ESCITALOPRAM 10 MG TAB PO SCH (21:57)
[2023-11-16] MEDS: ARIPiprazole 10 MG TAB PO SCH (21:57)
--- NOTE | 2023-11-17 11:30 | P.PN ---
Progress Note - Text Progress Note Date: 11/17/23 Interval History: Patient was seen in her room, and was directable and agreeable to speak with devin martel in the office. Patient states that she is fine today. Patient states that her heart races at night time. Then laughs inappropriately. Continues to have no eye contact, looking at the floor, kicking her feet on the floor. Information Technology Program Manager reviewed vitals, heart rate is mildly elevated, will decrease the dose of Abilify. Patient has started going to minimal groups claims that she did go to the morning group however did not say anything in it. Still continues to isolate mostly to her room. At this time patient denies any suicidal or homicidal ideations, intent or plan. Patient is not caring for ADL's. Not showering, not brushing her hair. She denies any auditory, visual hallucinations and denies any paranoia. Patient denies any side effects from the medications and has been compliant with meds. she is continuing to keep to herself in her room and not socializing with others. Mental Status Exam: General Appearance: Patient appears to be stated age is alert, directable, and cooperative. Poor hygiene and grooming. Wearing pants and a shirt. Behavior: Restless, fidgeting, no eye contact, swaying in chair, kicking her feet, childlike defiant. laughs at times. Speech: Patient's speech is fluent and nonpressured. Mood/Affect: Patient reports their mood is "ok", affect is congruent and constricted Suicidality/Homicidality: Patient denies having any homicidal ideation intent or plan. Denies suicidal ideation Perceptions: Patient denies any visual hallucinations and denies any auditory hallucinations Though content/process: Mostly linear and other times slightly unrelated to question; mild paranoia, guarded. vague Memory and concentration: AOX3, grossly intact for the purposes of this session. Judgment and insight: poor, improving mildly Assessment: Depressive disorder, unspecified (prodromal symptoms vs MDD unlikely to be bipolar) Social anxiety disorder PLAN: -Patient is admitted under voluntary status to [facility] for stabilization of psychiatric symptoms and safety. Patient signed adult voluntary form and medication consent and is placed in patient's chart. -Medications : increase Lexapro 15 mg qhs for mood, plan to continue increasing. melatonin 5 mg qHS for sleep, trazodone 50 mg QHS for sleep, decrease Ablilfy 7.5 mg daily for mood stabilization/psychosis due to likely a/e -SW on board for discharge planning. Encourage patient to participate in groups to work on coping skills. Will likely discharge Monday vs Monday. SW will speak with mother to come up with a solid discharge plan and gather feedback from visitation.
[2023-11-17] MEDS: ESCITALOPRAM 20 MG TAB PO SCH (21:46)
[2023-11-18] MEDS: ARIPiprazole 5 MG TAB PO SCH (09:17)
--- NOTE | 2023-11-18 10:29 | P.PN ---
Progress Note - Text Progress Note Date: 11/18/23 Interval history: Patient was seen laying in her bed this morning and was directable and agreeable to speak with senior mortgage underwriter. She states that she still feels uncomfortable with other patients and has high levels of anxiety. States that her mood is improving. Continues to be fairly superficial, concrete and childlike. She was fairly focused on discharge. States that she is sleeping better, claims that her side effect of palpitations have decreased since yesterday. At this time patient denies any suicidal or homicidal ideations intent or plan. Denies any Auditory or visual hallucinations. Patient denies any side effects from the medications and has been compliant with meds. Mental status exam: General Appearance: Patient appears to be stated age is alert, directable, and cooperative. Superficial. Behavior: No agitated behavior. Patient is calm and directable superficial Speech: Patient's speech is fluent and nonpressured. Mood/Affect: Mood is improving mildly, affect is congruent and constricted. Suicidality/Homicidality: Patient denies having any suicidal or homicidal idea tion intent or plan. Perceptions: Patient denies any auditory or visual hallucinations. Though content/process: There is no evidence of any delusional thought content and thought process is linear and goal-directed. [place], evasive Memory and concentration: AOX3, grossly intact for the purposes of this session Judgment and insight: Poor, improving mildly Assessment/Plan: Continue with current diagnosis. Patient continues to meet criteria for inpatient psychiatric admission for symptom stabilization and safety. Patient will be maintained on current psychotropic medication regimen, will decrease Abilify to 5 mg daily to avoid increase in anxiety and tachycardia. Monitor for medication compliance and for any psychotropic medication side effects. Will continue to monitor ongoing response to treatment. Encouraged participation in milieu. Likely discharge Monday versus Monday, will need family meeting with parent prior to discharge.
[2023-11-19] MEDS: ARIPiprazole 5 MG TAB PO SCH (08:53)
--- NOTE | 2023-11-19 10:09 | P.PN ---
Progress Note - Text Progress Note Date: 11/19/23 Interval history: Patient was seen laying in her bed this morning and was directable and agreeable to speak with advertising writer. She continues to be fairly superficial with advertising writer, today was more argumentative and focused on discharge. Tooth Inspector attempted to explain to patient that we need to have a family meeting to discuss safety planning at home and assess her baseline however patient did not understand this and continue to question advertising writer and demanded discharge. States that her mood is improving. Continues to be fairly superficial, concrete and childlike. States that she is sleeping better, claims that her side effect of palpitations have decreased and no longer present. At this time patient denies any suicidal or homicidal ideations intent or plan. Denies any Auditory or visual hallucinations. Patient denies any side effects from the medications and has been compliant with meds. Mental status exam: General Appearance: Patient appears to be stated age is alert, directable, and cooperative. Superficial. And argumentative Behavior: No agitated behavior. Patient is calm and directable superficial Speech: Patient's speech is fluent and nonpressured. Mood/Affect: Mood is improving mildly, affect is congruent and constricted. Suicidality/Homicidality: Patient denies having any suicidal or homicidal ideation intent or plan. Perceptions: Patient denies any auditory or visual hallucinations. Though content/process: There is no evidence of any delusional thought content and thought process is linear and goal-directed. [place], evasive, argumentative today Memory and concentration: AOX3, grossly intact for the purposes of this session Judgment and insight: Chronically poor, improving mildly Assessment/Plan: Continue with current diagnosis. Patient continues to meet criteria for inpatient psychiatric admission for symptom stabilization and safety. Patient will be maintained on current psychotropic medication regimen. Monitor for medication compliance and for any psychotropic medication side effects. Will continue to monitor ongoing response to treatment. Encouraged participation in milieu. Likely discharge Monday versus Monday, will need family meeting with parent prior to discharge to ensure safety at home and assess for baseline.
--- NOTE | 2023-11-20 11:35 | P.PN ---
Progress Note - Text Progress Note Date: 11/20/23 Interval History: Patient was seen in her room, and was directable and agreeable to speak with devin martel at the bedside. Patient states she is fine today. continues to laugh inappropriately during interview. Still continues to isolate mostly to her room. She continues to be fairly concrete in her answers. Patient stated that she showered yesterday. Focused on discharge. Dial Buffer told patient we need to have a family meeting prior, and that social work has been unsuccessful at reaching the patients mother, who is her guardian. Patient asked if we could contact her grandmother, insurance underwriter told patient to fill out the release of information form for us to be able to talk to her. At this time patient denies any suicidal or homicidal ideations, intent or plan. She denies any auditory, visual hallucinations and denies any paranoia. Patient denies any side effects from the medications and has been compliant with meds. she is continuing to keep to herself in her room and not socializing with others. Mental Status Exam: General Appearance: Patient appears to be stated age is alert, directable, and cooperative. Poor hygiene and grooming. Wearing pants and a shirt. Behavior: Restless, fidgeting, no eye contact, swaying in chair, kicking her feet, childlike defiant. laughs at times. Speech: Patient's speech is fluent and nonpressured. Mood/Affect: Patient reports their mood is "fine", affect is congruent and constricted Suicidality/Homicidality: Patient denies having any homicidal ideation intent or plan. Denies suicidal ideation Perceptions: Patient denies any visual hallucinations and denies any auditory hallucinations Though content/process: Mostly linear concrete; guarded. vague Memory and concentration: AOX3, grossly intact for the purposes of this session. Judgment and insight: Chronically poor/limited, improving mildly Assessment: Depressive disorder, unspecified (prodromal symptoms vs MDD unlikely to be bipolar) Social anxiety disorder PLAN: -Patient is admitted under voluntary status to [facility]HU for stabilization of psychiatric symptoms and safety. Patient signed adult voluntary form and medication consent and is placed in patient's chart. -Medications : increase Lexapro 20 mg qhs for mood. melatonin 5 mg qHS for sleep, trazodone 50 mg QHS for sleep, Ablilfy 5 mg daily for mood stabilization/psychosis -[place] on board for discharge planning. Encourage patient to participate in groups to work on coping skills. Will likely discharge Monday. SW will speak with mother to come up with a solid discharge plan and gather feedback from visitation.
[2023-11-21] MEDS: ESCITALOPRAM 20 MG TAB PO SCH (08:46)
--- NOTE | 2023-11-21 11:53 | P.PN ---
Progress Note - Text Progress Note Date: 11/21/23 Interval History: Patient was seen in her room, and was directable and agreeable to speak with devin martel at the bedside. Patient states she is fine today. Still continues to isolate mostly to her room. She continues to be concrete in her answers, however, according to her mother, this is all baseline for her. Patient is eating some meals, encouraged patient to eat more of her meals. Patient offers no complaints. At this time patient denies any suicidal or homicidal ideations, intent or plan. She denies any auditory, visual hallucinations and denies any paranoia. Patient denies any side effects from the medications and has been compliant with meds. Mental Status Exam: General Appearance: Patient appears to be stated age is alert, directable, and cooperative. improving hygiene and grooming. Wearing pants and a shirt. Behavior: Restless, fidgeting, no eye contact, swaying in chair, kicking her feet, childlike defiant. laughs at times. Speech: Patient's speech is fluent and nonpressured. Mood/Affect: Patient reports their mood is "fine", affect is congruent and constricted Suicidality/Homicidality: Patient denies having any homicidal ideation intent or plan. Denies suicidal ideation Perceptions: Patient denies any visual hallucinations and denies any auditory hallucinations Though content/process: Mostly linear concrete; guarded. Improving mildly Memory and concentration: AOX3, grossly intact for the purposes of this session. Judgment and insight: Chronically poor/limited, improving mildly Assessment: Depressive disorder, unspecified (prodromal symptoms vs MDD unlikely to be bipolar) Social anxiety disorder PLAN: -Patient is admitted under voluntary status to [facility] for stabilization of psychiatric symptoms and safety. Patient signed adult voluntary form and medication consent and is placed in patient's chart. -Medications : Lexapro 20 mg qhs for mood. melatonin 5 mg qHS for sleep, trazodone 50 mg QHS for sleep, Ablilfy 5 mg daily for mood stabilization/psychosis -SW on board for discharge planning. Encourage patient to participate in groups to work on coping skills. Will likely discharge Monday. SW spoke with mother to come up with a solid discharge plan and will likely discharge home tomorrow.
[2023-11-22 07:22] VITALS: BP 110/72; PULSE 84; RESP 14; TEMP 97.9
--- NOTE | 2023-11-22 11:23 | P.DS ---
Providers Date of admission: 11/10/23 21:30 Expected date of discharge: 11/22/23 Attending physician: Ernie Brown MD Consults: 11/10/23 21:49 Consult Physician Routine Consulting Provider: Sugey Physician Consult Reason/Comments: H&P Do you want consulting provider notified?: Yes Primary care physician: Stated None - Discharge Diagnosis(es) (1) Depressive disorder Current Visit: Yes Status: Acute Priority: High (2) Social anxiety disorder Current Visit: Yes Status: Acute Priority: Medium (3) Self mutilating behavior Current Visit: Yes Status: Acute Priority: High Hospital Course: Admission HPI: Admission note was completed by Dr Gutierrez "Patient was brought into the ED by her mother due to suicidal ideation. She was noted to have several superficial lacerations on bilateral forearms and legs. She endorsed suicidal ideation that had been worsening over the past few weeks and reported having increased urge to act on suicidal ideation. She was guarded while in the ED and would not disclose a plan but revealed that it is a "graphic "plan. Ruby is hesitant, often tearful, and has eye contact darting around. She says she has been having low mood over the past 3 years. She says a stressor was her father dying 2 years ago from overdose. She reports having a sense of purposelessness, hopelessness, and not being aware of what she should do with her life. Since graduating high school, she says that she has not been doing anything with her life. She reports sleeping from around 6AM-1PM. She denies trouble with falling asleep or staying asleep. She endorses low energy, low concentration, low motivation, and low appetite ongoing for the past 1 year. She use to enjoy drawing, writing, and watching TV, but says these have not been enjoyable. Patient was started on Zoloft 25 mg 1 month ago. Since being on this medication, she states that she has found herself to be able to express herself more. However, she has noticed her suicidal ideation to have become "more vivid ". Patient currently admits to suicidal ideation with a plan to cut herself deeply. She endorses anxiety. In particular, she is worried about being scrutinized by others, fears that she will embarrass herself, and states she is particularly anxious when interacting with groups of people. She reports this has been ongoing since her childhood. She admits to paranoia about others speaking about her and worries about getting bullied. She states that she is not close to her family members and does not speak with them often at this time. Although patient has a family history of bipolar disorder, she denies symptoms of irene. In psychiatric review of systems, she denies homicidal ideation. She denies access to weapons. She denies auditory and visual hallucinations. " Hospital course: Upon admission to the unit patient was directable and agreeable to commence reza tment and signed adult voluntary form. Patient was fairly timid, mainly kept herself in her room, she did go to 1 or 2 groups, got along well with other patients on the unit and followed unit protocol. Patient was compliant with the medications and denied any side effects throughout hospital course. Patient was started on Lexapro and increased to dose of 20 mg nightly for mood/anxiety, melatonin 5 mg nightly for sleep, trazodone 50 mg nightly for sleep/mood, Abilify p.o. 5 mg daily for mood stabilization/psychosis. Patient was also seen by medical team for history and physical exam. Throughout the course of the hospitalization patient gradually improved with regards to mood, anxiety, suicidal thoughts, sleep and returned back to their baseline level of functioning. On the day of discharge patient denied any suicidal or homicidal ideations intent or plan denied any auditory or visual hallucinations. Patient endorsed wanting to live for her health and her family. The patient denied any access to guns or weapons. Patient denied any paranoia and did not endorse any delusions. Patient does not have a significant history of substance abuse and was counseled on abstaining from all substances including alcohol and marijuana. Patient was also counseled on the medications and need for regular compliance and was encouraged to follow-up with their outpatient appointment for mental health and also for primary care. Prior to discharge a family meeting will be arranged by social work instructor to answer any questions and ensure safety upon discharge. housekeeping laundry worker ensured with patient's mother that the environment at home was safe and that she looked in her room in the house for any razor blades or other sharp objects to reduce the options/opportunity for cutting. Mental status exam: General Appearance: Patient appears to be thin, stated age is alert, pleasant, attempts to cooperate. Patient is in no acute distress and has improved hygiene and grooming Behavior: Patient is calmly seated without any agitated behavior. Fairly poor eye contact. Speech: Patient's speech is fluent and nonpressured. Mood/Affect: Patient reports their mood is "good", affect is congruent and eut hymic. Suicidality/Homicidality: Patient denies having any suicidal or homicidal ideation intent or plan. Perceptions: Patient denies any auditory or visual hallucinations. Though content/process: There is no evidence of any delusional thought content and thought process is linear and goal-directed. [place] Memory and concentration: AOX3, grossly intact for the purposes of this session. Can spell "WORLD" backwards correctly. Judgment and insight: Chronically poor, however has improved with guarded prognosis Impression: Depressive disorder, unspecified (prodromal symptoms vs MDD unlikely to be bipolar) Social anxiety disorder self mutilation behavior Plan: -Continue with discharge today as patient has improved and stabilized psychiatrically and is not currently an imminent threat to herself and/or others. Patient will remain at chronically elevated risk for harm to self and/or others due to her impulsivity history of self harm. -Continue medications: Lexapro 20 mg daily for mood/anxiety, Abilify 5 mg daily for mood stabilization/psychosis, melatonin 5 mg nightly for sleep, trazodone 50 mg nightly for sleep/mood -Patient was counseled on the need for medication compliance and appropriate follow-up at mental health and also primary care for medical issues. Patient verbalized understanding and agreed. -Social work to arrange for and conduct family meeting to ensure safety upon discharge and answer any questions/concerns. Social work also to arrange for patients follow up appointments with [facility] for psychiatric care along with follow up with primary care provider. -Patient counseled on abstaining from recreational drugs and marijuana and alcohol. Was informed/educated on the adverse effects on their physical and mental health. Patient verbally agreed and understood. -Patient was instructed to return to the hospital or seek immediate medical care if their psychiatric or medical symptoms do worsen or reoccur. Allergies Allergy/AdvReac Type Severity Reaction Status Date / Time No Known Allergies Allergy Verified 11/10/23 21:17 Laboratory Results WBC 5.7 k/uL (3.8-10.6) 11/11/23 07:00 RBC 3.93 m/uL (3.80-5.40) 11/11/23 07:00 Hgb 12.6 gm/dL (11.4-16.0) 11/11/23 07:00 Hct 37.4 % (34.0-46.0) 11/11/23 07:00 MCV 95.3 fL (80.0-100.0) 11/11/23 07:00 MCH 32.0 pg (25.0-35.0) 11/11/23 07:00 MCHC 33.6 g/dL (31.0-37.0) 11/11/23 07:00 RDW 12.6 % (11.5-15.5) 11/11/23 07:00 Plt Count 270 k/uL (150-450) 11/11/23 07:00 MPV 8.1 11/11/23 07:00 Neutrophils % 54 % 11/11/23 07:00 Lymphocytes % 36 % 11/11/23 07:00 Monocytes % 6 % 11/11/23 07:00 Eosinophils % 2 % 11/11/23 07:00 Basophils % 1 % 11/11/23 07:00 Neutrophils # 3.1 k/uL (1.3-7.7) 11/11/23 07:00 Lymphocytes # 2.1 k/uL (1.0-4.8) 11/11/23 07:00 Monocytes # 0.3 k/uL (0-1.0) 11/11/23 07:00 Eosinophils # 0.1 k/uL (0-0.7) 11/11/23 07:00 Basophils # 0.1 k/uL (0-0.2) 11/11/23 07:00 Sodium 140 mmol/L (137-145) 11/11/23 07:00 Potassium 4.0 mmol/L (3.5-5.1) 11/11/23 07:00 Chloride 107 mmol/L (98-107) 11/11/23 07:00 Carbon Dioxide 24 mmol/L (22-30) 11/11/23 07:00 Anion Gap 9 mmol/L 11/11/23 07:00 BUN 11 mg/dL (7-17) 11/11/23 07:00 Creatinine 0.67 mg/dL (0.52-1.04) 11/11/23 07:00 Est GFR (CKD-EPI)AfAm >90 (>60 ml/min/1.73 sqM) 11/11/23 07:00 Est GFR (CKD-EPI)NonAf >90 (>60 ml/min/1.73 sqM) 11/11/23 07:00 Glucose 83 mg/dL (74-99) 11/11/23 07:[address] Glu mg/dL 94 mg/dL 11/11/23 07:00 Hemoglobin A1c 4.9 % (<=6.0) 11/11/23 07:00 Calcium 9.3 mg/dL (8.4-10.2) 11/11/23 07:00 Total Bilirubin 1.2 mg/dL (0.2-1.3) 11/11/23 07:00 AST 19 U/L (14-36) 11/11/23 07:00 ALT 12 U/L (4-34) 11/11/23 07:00 Alkaline Phosphatase 54 U/L (38-126) 11/11/23 07:00 Total Protein 7.5 g/dL (6.3-8.2) 11/11/23 07:00 Albumin 4.5 g/dL (3.5-5.0) 11/11/23 07:00 TSH 3.510 mIU/L (0.465-4.680) 11/11/23 07:00 Urine Color Colorless 11/15/23 07:22 Urine Appearance Clear (Clear) 11/15/23 07:22 Urine pH 6.5 (5.0-8.0) 11/15/23 07:22 Ur Specific Gracey 1.007 (1.001-1.035) 11/15/23 07:22 Urine Protein Negative (Negative) 11/15/23 07:22 Urine Glucose (UA) Negative (Negative) 11/15/23 07:22 Urine Ketones 2+ (Negative) H 11/15/23 07:22 Urine Blood Negative (Negative) 11/15/23 07:22 Urine Nitrite Negative (Negative) 11/15/23 07:22 Urine Bilirubin Negative (Negative) 11/15/23 07:22 Urine Urobilinogen <2.0 mg/dL (<2.0) 11/15/23 07:22 Ur Leukocyte Esterase Negative (Negative) 11/15/23 07:22 Urine HCG, Qual Not Detected (Not Detectd) 11/10/23 20:20 Urine Opiates Screen Not Detected (NotDetected) 11/10/23 20:20 Ur Oxycodone Screen Not Detected (NotDetected) 11/10/23 20:20 Urine Methadone Screen Not Detected (NotDetected) 11/10/23 20:20 Ur Barbiturates Screen Not Detected (NotDetected) 11/10/23 20:20 U Tricyclic Antidepress Not Detected (NotDetected) 11/10/23 20:20 Ur Phencyclidine Scrn Not Detected (NotDetected) 11/10/23 20:20 Ur Amphetamines Screen Not Detected (NotDetected) 11/10/23 20:20 U Methamphetamines Scrn Not Detected (NotDetected) 11/10/23 20:20 U Benzodiazepines Scrn Not Detected (NotDetected) 11/10/23 20:20 Urine Cocaine Screen Not Detected (NotDetected) 11/10/23 20:20 U Marijuana (THC) Screen Not Detected (NotDetected) 11/10/23 20:20 SARS-CoV-2 (PCR) Not Detected (Not Detectd) 11/10/23 19:40 Vital Signs Temp 97.9 F 11/22/23 06:57 Pulse 84 11/22/23 06:57 Resp 14 11/22/23 06:57 BP 110/72 11/22/23 06:57 Pulse Ox 100 11/22/23 06:57 FiO2 Intake & Output 11/21/23 11/22/23 11/22/23 18:59 06:59 18:59 Intake Total 437 Balance 437 Intake: Oral 437 Patient Condition at Discharge: Stable Plan - Discharge Summary Discharge Rx Participant: No New Discharge Prescriptions: New ARIPiprazole [Abilify] 5 mg PO DAILY 30 Days #30 tab traZODone HCL [Desyrel] 50 mg PO HS 30 Days #30 tab Escitalopram [Lexapro] 20 mg PO DAILY 30 Days #30 tab Melatonin 5 mg PO HS 30 Days #30 tab hydrOXYzine pamoate [Vistaril] 25 mg PO BID PRN 30 Days #60 cap PRN Reason: Anxiety Discontinued Sertraline [Zoloft] 25 mg PO DAILY Discharge Medication List ARIPiprazole [Abilify] 5 mg PO DAILY 30 Days #30 tab 11/22/23 [Rx] Escitalopram [Lexapro] 20 mg PO DAILY 30 Days #30 tab 11/22/23 [Rx] Melatonin 5 mg PO HS 30 Days #30 tab 11/22/23 [Rx] hydrOXYzine pamoate [Vistaril] 25 mg PO BID PRN 30 Days #60 cap 11/22/23 [Rx] traZODone HCL [Desyrel] 50 mg PO HS 30 Days #30 tab 11/22/23 [Rx] Follow up Appointment(s)/Referral(s): [facility] [Outside] - 11/28/23 12:00 pm (11/27@ 12pm with Coco Garrett 12/04@ 8:30am with Jessica Travis NP) None,Stated [Primary Care Provider] - 1-2 days Activity/Diet/Wound Care/Special Instructions: Avoid the use of street drugs and alcohol. Take all medications as prescribed. When you are in need of refills on your medications, please contact your medical provider and/or outpatient psychiatrist/provider to have this done. Please go to your scheduled outpatient appointment for aftercare treatment. If symptoms return or become worse, call the crisis line at and/or go to the nearest emergency room for evaluation. National Suicide Hotline 501. Discharge Disposition: HOME SELF-CARE
== END 2023-11-22 15:05 | disposition home or self-care (01) | DRG 754 ==
LOC: EC 16:11 → 3MHU 21:30
PROVIDERS: ADMIT Psychiatry & Neurology Psychiatry; ATTEND Psychiatry & Neurology Psychiatry
DX: F32.A Depression, unspecified (principal); F40.10 Social phobia, unspecified; Z91.52 Personal history of nonsuicidal self-harm; R45.851 Suicidal ideations; S51.811A Laceration without foreign body of right forearm, initial encounter; S51.812A Laceration without foreign body of left forearm, initial encounter; S81.812A Laceration without foreign body, left lower leg, initial encounter; S81.811A Laceration without foreign body, right lower leg, initial encounter; X78.9XXA Intentional self-harm by unspecified sharp object, initial encounter; Z79.899 Other long term (current) drug therapy; Z11.52 Encounter for screening for COVID-19; Z71.89 Other specified counseling
CPT/HCPCS: 80053; 80306; 81003; 81025; 82075; 83036; 84443; 85025; 87635; 99285

== ENCOUNTER 2025-03-01 12:28 | Inpatient (IN) | payer MEDICAID, OTHER ==
[2025-03-01 14:02] LABS: Barbiturate Screen,Urine Not Detected (NotDetected); Benzodiazepines Screen,Urine Not Detected (NotDetected); Opiate Screen,Urine Not Detected (NotDetected); Oxycodone Screen, Urine Not Detected (NotDetected); Phencyclidine Screen,Urine Not Detected (NotDetected); Tricyclic Antidepressant,Urine Not Detected (NotDetected); Urn Cannabinoid Scrn Not Detected (NotDetected)
--- NOTE | 2025-03-01 14:13 | ED ---
General Adult HPI - General Chief complaint: Psychiatric Symptoms Stated complaint: Mental Health Eval Time Seen by Provider: 03/01/25 13:20 Source: patient, family, RN notes reviewed, old records reviewed Mode of arrival: ambulatory Limitations: no limitations - History of Present Illness Initial comments: 24-year-old female who presents emergency department for suicidal ideation. Patient has a history of self injuring behavior. Patient is unwilling to disclose all aspects of her suicidal thoughts to myself but apparently has been getting worse lately. Presents with her mother. Patient is unkempt, not making eye contact with myself. Denies any homicidal ideations, intent, plans. Denies any visual or auditory hallucinations. Patient denies any drug use. Denies any alcohol use. Has no other acute complaints.. He has required inpatient psychiatric admission in the past. Presents for further evaluation at this time. - Related Data Previous Rx's Medication Instructions Recorded ARIPiprazole [Abilify] 5 mg PO DAILY 30 Days #30 tab 11/22/23 Escitalopram [Lexapro] 20 mg PO DAILY 30 Days #30 tab 11/22/23 Melatonin 5 mg PO HS 30 Days #30 tab 11/22/23 hydrOXYzine pamoate [Vistaril] 25 mg PO BID PRN 30 Days #60 cap 11/22/23 traZODone HCL [Desyrel] 50 mg PO HS 30 Days #30 tab 11/22/23 Allergies Allergy/AdvReac Type Severity Reaction Status Date / Time No Known Allergies Allergy Verified 11/10/23 21:17 Review of Systems ROS Statement: Those systems with pertinent positive or pertinent negative responses have been documented in the HPI. Review of Systems: CONST: Denies fever EYES: Denies blurry vision ENT: Denies nasal congestion C/V: Denies Chest pain RESP: Denies shortness of breath GI: Denies abdominal pain : Denies dysuria SKIN: Denies rash. MSK: Denies joint pain. NEURO: Denies headache ROS Other: All systems not noted in ROS Statement are negative. Past Medical History Past Medical History: No Reported History History of Any Multi-Drug Resistant Organisms: None Reported Past Surgical History: No Surgical Hx Reported Past Anesthesia/Blood Transfusion Reactions: No Reported Reaction Past Psychological History: Anxiety, Depression Smoking Status: Never smoker Past Alcohol Use History: None Reported Past Drug Use History: None Reported - Past Family History Mother Family Medical History: Hyperlipidemia General Exam - General Exam Comments Initial Comments: General: Appears in no acute distress. Unkempt. Mildly disheveled. HEAD: Normal with no signs of head trauma. EYES: EOMI. ENT: Hearing grossly intact. RESPIRATORY: No respiratory distress. C/V: Regular rate and rhythm. ABD: Abdomen is nondistended. EXT: No obvious deformity. SKIN: No rashes or lesions observed on exposed skin. Bilateral arm scars from self-injuring behavior. No acute injury. NEURO: Alert and oriented. Limitations: no limitations Course Vital Signs 03/01/25 12:31 Temperature 98.3 F Pulse Rate 128 H Respiratory 20 Rate Blood Pressure 113/73 O2 Sat by Pulse 95 Oximetry Medical Decision Making - Medical Decision Making Was pt. sent in by a medical professional or institution (, PA, MANAGER MEAT, urgent care, hospital, or assisted...) When possible be specific @ -No Did you speak to anyone other than the patient for history (EMS, parent, family, police, friend...)? What history was obtained from this source @ -Patient's mother presents with patient and assist with past medical history. Did you review nursing and triage notes (agree or disagree)? Why? @ -I reviewed and agree with nursing and triage notes Were old charts reviewed (outside hosp., previous admission, EMS record, old EKG, old radiological studies, urgent care reports/EKG's, assisted records)? Report findings @ -No old charts were reviewed Differential Diagnosis (chest pain, altered mental status, abdominal pain women, abdominal pain men, vaginal bleeding, weakness, fever, dyspnea, syncope, headache, dizziness, GI bleed, back pain, seizure, CVA, palpatations, mental health, musculoskeletal)? @ -Differential Mental Health Depression, anxiety, bipolar, psychosis, schizophrenia, borderline personality, situational depression, adjustment disorder, behavioral disorder, brain tumor, malingering, substance abuse, encephalopathy, medication reaction, dementia, hypothyroidism, degenerative neurologic disorder, lupus.... This is not meant to be all-inclusive list EKG interpreted by me (3pts min.). @ -None done X-rays interpreted by me (1pt min.). @ -None done CT interpreted by me (1pt min.). @ -None done U/S interpreted by me (1pt. min.). @ -None done What testing was considered but not performed or refused? (CT, X-rays, U/S, labs)? Why? @ -None What meds were considered but not given or refused? Why? @ -None Did you discuss the management of the patient with other professionals (professionals i.e. , PA, MANAGER MEAT, lab, RT, psych nurse, social services manager, gold charmer, teacher, correctional officer sergeant, machine adjuster leader case trim)? Give summary @ -No Was smoking cessation discussed for >3mins.? @ -No Was critical care preformed (if so, how long)? @ -No Were there social determinants of health that impacted care today? How? (Homelessness, low income, unemployed, alcoholism, drug addiction, transportation, low edu. Level, literacy, decrease access to med. care, usp, rehab)? @ -No Was there de-escalation of care discussed even if they declined (Discuss DNR or withdrawal of care, Hospice)? DNR status @ -No What co-morbidities impacted this encounter? (DM, HTN, Smoking, COPD, CAD, Cancer, CVA, ARF, Chemo, Hep., AIDS, mental health diagnosis, sleep apnea, morbid obesity)? @ -None Was patient admitted / discharged? Hospital course, mention meds given and route, prescriptions, significant lab abnormalities, going to OR and other pertinent info. @ -Patient presents for mental health evaluation. He has been more suicidal lately. Patient is unkempt and somewhat disheveled. Vitals are within acceptable limits, was initially mildly tachycardic but this seems to be improved. Likely related to anxiety. BAT is 0. UDS is pending. Sitter ordered. Suicide precautions ordered. At this time, patient medically cleared by myself. Disposition pending psychiatric evaluation. EPS notified of the consult. EPS evaluated patient and determined that she does meet inpatient psychiatric arteria. Patient will be admitted to inpatient psychiatry. Undiagnosed new problem with uncertain prognosis? @ -No Drug Therapy requiring intensive monitoring for toxicity (Heparin, Nitro, Insulin, Cardizem)? @ -No Were any procedures done? @ -No Diagnosis/symptom? @ -Suicidal ideations Acute, or Chronic, or Acute on Chronic? @ -Acute Uncomplicated (without systemic symptoms) or Complicated (systemic symptoms)? @ -Complicated Side effects of treatment? @ -None Exacerbation, Progression, or Severe Exacerbation] @ -No Poses a threat to life or bodily function? @ -Yes - Lab Data Lab Results 03/01/25 Range/Units 13:35 Urine Opiates Screen Not Detected (NotDetected) Ur Oxycodone Screen Not Detected (NotDetected) Urine Methadone Screen Not Detected (NotDetected) Ur Barbiturates Screen Not Detected (NotDetected) U Tricyclic Antidepress Not Detected (NotDetected) Ur Phencyclidine Scrn Not Detected (NotDetected) Ur Amphetamines Screen Not Detected (NotDetected) U Methamphetamines Scrn Not Detected (NotDetected) U Benzodiazepines Scrn Not Detected (NotDetected) Urine Cocaine Screen Not Detected (NotDetected) U Marijuana (THC) Screen Not Detected (NotDetected) Disposition Clinical Impression: Suicidal ideations Disposition: TRANSFER TO PSYCH HOSP/UNIT Condition: Stable Referrals: None,Stated [Primary Care Provider] - 1-2 days
[2025-03-01] MEDS ORDERED: OLANZapine 10 MG VIAL IM PRN (16:09)
[2025-03-01] MEDS ORDERED: ACETAMINOPHEN TAB 325 MG TAB PO PRN (16:09)
[2025-03-01] MEDS ORDERED: MAGNESIUM HYDROXIDE 2,400 MG/30 ML CUP PO PRN (16:09)
[2025-03-01] MEDS ORDERED: IBUPROFEN 600 MG TAB PO PRN (16:09)
[2025-03-01] MEDS ORDERED: OLANZapine 2.5 MG TAB PO PRN (16:09)
[2025-03-01] MEDS ORDERED: MAG HYDROX/AL HYDROX/SIMETH 355 ML BOTTLE PO PRN (16:09)
[2025-03-01] MEDS ORDERED: hydrOXYzine HCL 50 MG/ML 1 ML VIAL IM PRN (16:09)
[2025-03-01] MEDS: LORazepam 1 MG TAB PO STA (16:21)
[2025-03-01 18:31] LABS: Bilirubin,Urine Negative (Negative); Blood,Urine Negative (Negative); Color,Urine Colorless; Glucose,Urine (UA) Negative (Negative); Ketones,Urine Negative (Negative); Leukocyte Esterase,Urine Negative (Negative); Nitrite,Urine Negative (Negative); PH, Urine 7.5 (5.0-8.0); Protein,Urine Negative (Negative); Specific Gravity,Urine 1.006 (1.001-1.035); Urobilinogen,Urine <2.0 mg/dL (<2.0)
[2025-03-02 08:12] LABS: Basophils # (A) 0.04 10*3/uL (0.00-0.10); Basophils % (A) 0.9 %; Eosinophils # (A) 0.11 10*3/uL (0.04-0.35); Eosinophils % (A) 2.4 %; HCT 36.5 % (37.2-46.3); HGB 12.1 g/dL (12.0-15.0); Lymphocytes # (A) 1.21 10*3/uL (0.90-5.00); Lymphocytes % (A) 26.2 %; MCH 30.9 pg (27.0-32.0); MCHC 33.2 g/dL (32.0-37.0); MCV 93.4 fL (80.0-97.0); Monocytes # (A) 0.37 10*3/uL (0.20-1.00); Monocytes % (A) 8.0 %; Neutrophils # (A) 2.88 10*3/uL (1.80-7.70); Neutrophils % (A) 62.3 %; Platelet Count 291 10*3/uL (140-440); RBC 3.91 10*6/uL (4.10-5.20); RDW 12.4 % (11.5-14.5); WBC 4.62 10*3/uL (4.50-10.00)
[2025-03-02 08:29] LABS: ALT 12 U/L (4-34); AST 17 U/L (14-36); African American GFR (CKD) >90 (>60 ml/min/1.73 sqM); Albumin 4.8 g/dL (3.5-5.0); Alkaline Phosphatase 51 U/L (38-126); Anion Gap 8 mmol/L; Blood Urea Nitrogen 11 mg/dL (7-17); Calcium 9.6 mg/dL (8.4-10.2); Carbon Dioxide 27 mmol/L (22-30); Chloride 104 mmol/L (98-107); Glucose 88 mg/dL (74-99); Non-African American GFR(CKD) >90 (>60 ml/min/1.73 sqM); Potassium 4.5 mmol/L (3.5-5.1); Sodium 139 mmol/L (137-145); Total Protein 7.6 g/dL (6.3-8.2)
--- NOTE | 2025-03-02 09:27 | P.HP ---
Psychiatric H&P - . H&P Date: 03/02/25 History & Physical: Allergies Allergy/AdvReac Type Severity Reaction Status Date / Time No Known Allergies Allergy Verified 03/01/25 16:15 Vital Signs Temp 97.1 F L 03/01/25 21:00 Pulse 70 03/01/25 21:00 Resp 16 03/01/25 21:00 BP 84/54 03/01/25 21:00 Pulse Ox 98 03/01/25 21:00 FiO2 Intake & Output 03/01/25 03/02/25 03/02/25 18:59 06:59 18:59 Weight 57.7 kg Laboratory Last Values Urine Color Colorless 03/01/25 13:35 Urine Appearance Clear (Clear) 03/01/25 13:35 Urine pH 7.5 (5.0-8.0) 03/01/25 13:35 Ur Specific Royal 1.006 (1.001-1.035) 03/01/25 13:35 Urine Protein Negative (Negative) 03/01/25 13:35 Urine Glucose (UA) Negative (Negative) 03/01/25 13:35 Urine Ketones Negative (Negative) 03/01/25 13:35 Urine Blood Negative (Negative) 03/01/25 13:35 Urine Nitrite Negative (Negative) 03/01/25 13:35 Urine Bilirubin Negative (Negative) 03/01/25 13:35 Urine Urobilinogen <2.0 mg/dL (<2.0) 03/01/25 13:35 Ur Leukocyte Esterase Negative (Negative) 03/01/25 13:35 Urine Opiates Screen Not Detected (NotDetected) 03/01/25 13:35 Ur Oxycodone Screen Not Detected (NotDetected) 03/01/25 13:35 Urine Methadone Screen Not Detected (NotDetected) 03/01/25 13:35 Ur Barbiturates Screen Not Detected (NotDetected) 03/01/25 13:35 U Tricyclic Antidepress Not Detected (NotDetected) 03/01/25 13:35 Ur Phencyclidine Scrn Not Detected (NotDetected) 03/01/25 13:35 Ur Amphetamines Screen Not Detected (NotDetected) 03/01/25 13:35 U Methamphetamines Scrn Not Detected (NotDetected) 03/01/25 13:35 U Benzodiazepines Scrn Not Detected (NotDetected) 03/01/25 13:35 Urine Cocaine Screen Not Detected (NotDetected) 03/01/25 13:35 U Marijuana (THC) Screen Not Detected (NotDetected) 03/01/25 13:35 SARS-CoV-2 (PCR) Not Detected (Not Detectd) 03/01/25 14:51 Dictation was produced using [employer] dictation software. Please excuse any grammatical, word or spelling errors. IDENTIFYING DATA: Patient is a 24 years old female with past psychiatric history of depression and social anxiety, presenting for suicidal ideation. HPI: Patient presented to the hospital for suicidal ideation, she has a history of self injurious behavior, the patient was guarded and conservative, she did not share much during assessment in the ED, reported that she has been getting worse lately. Per ED note patient is unkempt, not making eye contact, she denied any alcohol or substance use. Per EPS "the patient mother "Chriss" is her guardian at bed side, patient is A/O x 4, was tearful during assessment, states that she did not really have a choice but to come in. Reported having suicidal thoughts with no plan but has been cutting her arms, denies HI or AVH. Patient mother states patient was punching herself in the face and throwing food while saying she wanted to kill herself. Patient does not want to take medication, the patient mother has been taking the patient twice weekly in the month of January for ketamine which did not seem to be effective. Patient has also done DBT with [facility]. Upon evaluation in the unit the patient was in her room, agreed to speak with the conventional underwriter in the office. She states that she came in after having an argument with her mom, and "I threaten to harm myself," and was throwing stuff. States that she did not had a plan or anything, states that "it was serious but I was frustrated." States that she used to harm herself in the past, last self harm behaviors via cutting was 6 months ago. States that it's all started after her mom asked her to with her to her grandmother house, and she was uncomfortable doing so, and she was irritated. Pt states that she has been feeling down, sad, depressed for the last yrs and it can be for weeks at a time. Reported feeling hopeless, helpless, and worthless. She rated depression at 7/10. States that she does not enjoy anything and has no hobbies. She denied any current SI/HI or self harm, denied any previous history of suicide, however reported self harm beh aviors via cutting which was started when she was 14 yo, and it got worse 5 yrs ago. Sleep is good, denied any nightmares, appetite is good. She reported moderate anxiety, thinking about the past or the future, states that "I can't really change." She denied any manic or hypomanic symptoms, denied any flight of ideas racing thoughts and increased in goal directed behavior. At this time patient denies any auditory or visual hallucinations. Patient denied using any alcohol, tobacco, cannabis or any other substance. Pt states that she does not have any friends, reported that it is hard for her to make friend, pt was rocking during the meeting, avoid eye contact, patient reported that she has a routine and usually she gets frustrated and impulsive when things are not going her way. Pt states that she never been tested for learning disability or ASD. The pt was emotional and cried during evaluation, reported that she is worried about her future and if she will ever change. PAST PSYCHIATRIC HISTORY: - Inpatient Hospitalizations: Once at [facility] in 2023 - Outpatient Care: denies having any outpatient services. No therapy. Per chart review she used to follow up with [facility]. Pt states that she used to do group and individual therapy however denied any benefits, no hx of [facility] therapy - Current Psychotropics: Per report patient goes for ketamine treatment, pt sta robert that it is ended, it was 2 times per week for 2 months. - Prior Psychotropics/Therapy: Per chart review Abilify, Lexapro, melatonin 5 mg, hydroxyzine, trazodone, Zoloft, Wellbutrin (pt states that she was not compliant with the medications) - Prior Psychiatric diagnosis: Depression, anxiety, social anxiety, BPD - Suicidal Attempts: Denies - Self Harm: She has a history of cutting since she was 1-121 years old - Trauma History: denies PMH: as per ER note Past Medical History: No Reported History History of Any Multi-Drug Resistant Organisms: None Reported Past Surgical History: No Surgical Hx Reported Past Anesthesia/Blood Transfusion Reactions: No Reported Reaction Past Psychological History: Anxiety, Depression Smoking Status: Never smoker Past Alcohol Use History: None Reported Past Drug Use History: None Reported ALLERGIES: as per EMR CHEMICAL DEPENDENCY HISTORY: as per HPI FAMILY PSYCHIATRIC/SUBSTANCE USE HISTORY: The patient reported that her father has bipolar disorder, alcohol use disorder and the patient's older sister has bipolar disorder, denied any family history of suicide. SOCIAL HISTORY: Patient was born and raised in [facility] [place], lives with her mother, and her 25 yo brother, reported that she has 4 siblings, claims that her highest level of education is High school diploma, denied any legal issues. She is single, never , has no children. Never been in a relationship. MENTAL STATUS EXAM: General Appearance: Patient appears to be stated age is alert, directable, and attempts to cooperate. Patient appears to have fair hygiene and grooming. Behavior: Patient is seated without any agitated behavior. Speech: Patient's speech is fluent and nonpressured. Mood/Affect: Patient reports their mood is "down, depressed", affect is congrue nt and constricted. Suicidality/Homicidality: Patient denies having any homicidal ideation intent or plan. Denies any suicidal ideations intent or plan Perceptions: Patient denies any visual hallucinations and denies any auditory hallucinations Though content/process: There is no evidence of any delusional thought content and thought process is linear and goal-directed. Memory and concentration: AOX3, grossly intact for the purposes of this session. Can spell "WORLD" backwards Judgment and insight: Fair STRENGTHS/WEAKNESSES: strength is that patient is resilient, willing to get help, willing to take medication. Weakness is that patient has poor judgment and is impulsive INTELLECT: average IMPRESSIONS: -MDD, recurrent, moderate -Generalized anxiety disorder, rule out social anxiety disorder -Cluster B traits -Rule out autism spectrum disorder PLAN: -Patient is admitted under voluntary status to MHU for stabilization of psychiatric symptoms and safety. Patient has signed adult voluntary form and medication consent and is placed in patient's chart. -Medications : -Start Prozac 10 mg p.o. daily - Hydroxyzine, and Zyprexa PRN for agitation/aggression -Patient was informed of the risks, benefits and side effects of the medication, including the black box warning of antidepressant of increasing suicidal thoughts and 24 years old and younger and patient verbally consented to taking the medications. Patient signed med consent form and was placed in chart. -Internal Medicine consult to perform medical evaluation and physical. -NRT - not needed as patient does not smoke -SW on board for discharge planning. Encourage patient to participate in groups to work on coping skills. Patient will need outpatient services, collateral from the patient mother will be helpful. 03/02/25 07:39 03/02/25 08:35
[2025-03-02] MEDS: NICOTINE 14MG/24HR PATCH TRANSDERM SCH (09:42)
[2025-03-02 13:11] LABS: Cholesterol 168.00 mg/dL (0.00-200.00); HDL Cholesterol 59.70 mg/dL (40.00-60.00); LDL Cholesterol,Calculated 99.3 mg/dL (0.0-131.0); Triglycerides 45.00 mg/dL (0.00-149.00); VLDL Calculation 9.00 mg/dL (5.00-40.00)
[2025-03-02] MEDS: hydrOXYzine HCL 25 MG TAB PO PRN (17:14)
--- NOTE | 2025-03-03 06:40 | P.MDCNMH ---
History of Present Illness H&P Date: 03/03/25 24 year old female with no significant past medical history Patient coming in for mental health evaluation Medicine was consulted for medical management Patient denies any fevers chills nausea vomiting abdominal pain chest pain trouble breathing denies any dizziness lightheadedness denies any urinary changes or bowel habit changes denies any focal neurodeficits Review of systems All systems reviewed with pertinent positive negatives as per HPI on exam Constitutional: No acute distress, conversant, pleasant Eyes: Anicteric sclerae, moist conjunctiva, Pupils equal round reactive to light Neck: Supple, no masses, or JVD No carotid bruits No thyromegaly Lungs: Clear to auscultation Clear to percussion Normal respiratory effort, no accessory muscle use Cardiovascular: Heart regular in rate and rhythm, No murmurs, gallops, or rubs No peripheral edema Abdominal: Soft Nontender, no guarding, rebound or rigidity Abdomen moving with respiration Extremities: No digital cyanosis No clubbing Pedal pulses intact and symmetrical Radial pulses intact and symmetrical No calf tenderness Psychiatric: Alert and oriented to person, place and time Neuro Muscles Strength 5/5 in all 4 extremities Sensation to light touch grossly present throughout Cranial nerves II-XII grossly intact Past Medical History Past Medical History: No Reported History History of Any Multi-Drug Resistant Organisms: None Reported Past Surgical History: No Surgical Hx Reported Past Anesthesia/Blood Transfusion Reactions: No Reported Reaction Past Psychological History: Anxiety, Depression Smoking Status: Never smoker Past Alcohol Use History: None Reported Past Drug Use History: None Reported - Past Family History Mother Family Medical History: Hyperlipidemia Medications and Allergies Home Medications Medication Instructions Recorded Confirmed Type No Known Home Medications 03/01/25 03/01/25 History Allergies Allergy/AdvReac Type Severity Reaction Status Date / Time No Known Allergies Allergy Verified 03/01/25 16:15 Physical Exam Vitals: Vital Signs Temp Pulse Resp BP Pulse Ox 03/02/25 20:16 98.3 F 73 16 112/81 100 03/02/25 11:09 99.2 F 76 16 102/70 96 Intake and Output 03/02/25 03/02/25 03/03/25 14:59 22:59 06:59 Other: Weight 57.1 kg Cranial Nerve Examination - Cranial Nerves Cranial Nerve II- Optic: Intact Cranial Nerve III- Oculomotor: Intact Cranial Nerve IV- Trochlear: Intact Cranial Nerve V- Trigeminal: Intact Cranial Nerve - Abducens: Intact Cranial Nerve VII- Facial: Intact Cranial Nerve VIII- Auditory: Intact Cranial Nerve IX- Glossopharyngeal: Intact Cranial Nerve X- Vagus: Intact Cranial Nerve XI- Accessory: Intact Cranial Nerve XII- Hypoglossal: Intact Results CBC & Chem 7: 03/02/25 07:50 03/02/25 07:50 Labs: Abnormal Lab Results - Last 24 Hours (Table) 03/02/25 03/02/25 Range/Units 07:50 07:50 RBC 3.91 L (4.10-5.20) 10*6/uL Hct 36.5 L (37.2-46.3) % MPV 9.3 L (9.5-12.2) fL Total Bilirubin 2.1 H (0.2-1.3) mg/dL Assessment and Plan Assessment: suicidal ideation management per psych hyperbilirubinemia Hgb unremarkable other liver enzymes unremarkable repeat testing ,check fraction / unfraction if persistently elevated , consider liver US urine drug screen negative thank you for this consultation
--- NOTE | 2025-03-03 12:30 | P.PN ---
Progress Note - Text Progress Note Date: 03/03/25 Interval History: PAtient was seen today for psychiatric follow up. Patient had very poor eye co ntact, was shuffling the pages of her book repeatedly appeard to be anxious. Patient claims that she got brought to the hospital because she threatened suicide to her mother. She claims that she does not think she needs to be here in the hospital repeatedly asked for discharge. Appears to have very poor childlike behavior. Poor insight and poor judgment. She feels that medications do not really help her although she was agreeable to try lithium to help stabilize her mood. She is minimizing her depression and anxiety at this time. Very superficial about suicidal thoughts, denies any at this time denies any homicidal ideations. Denies any auditory or visual hallucinations. Not reporting any side effects from medications at this time. Claims that she has been sleeping fairly up for meals. MENTAL STATUS EXAM: General Appearance: Patient appears to be stated age is alert, directable, and attempts to cooperate. Patient appears to have fair hygiene and grooming. Hair covering her face Behavior: Patient is seated without any agitated behavior. Avoidant, poor eye contact Speech: Patient's speech is fluent and nonpressured. Childlike, concrete Mood/Affect: Patient reports their mood is "the same", affect is congruent and constricted. Suicidality/Homicidality: Patient denies having any homicidal ideation intent or plan. Denies any suicidal ideations intent or plan Perceptions: Patient denies any visual hallucinations and denies any auditory hallucinations Though content/process: There is no evidence of any delusional thought content. Minimizes her need for treatment focused on discharge. Memory and concentration: AOX3, grossly intact for the purposes of this session Judgment and insight: Poor IMPRESSIONS: MDD, recurrent, moderate Generalized anxiety disorder, rule out social anxiety disorder cluster B traits Rule out autism spectrum disorder PLAN: -Patient is admitted under voluntary status to MHU for stabilization of psychiatric symptoms and safety. Patient has signed adult voluntary form and medication consent and is placed in patient's chart. -Medications : -Increase Prozac 20 mg p.o. daily for mood/anxiety -Start lithium 150 mg twice daily for mood stabilization - Hydroxyzine, and Zyprexa PRN for agitation/aggression -NRT - not needed as patient does not smoke -SW on board for discharge planning. Encourage patient to participate in groups to work on coping skills.
[2025-03-03] MEDS: LITHIUM CARBONATE 150 MG CAP PO SCH (12:34)
[2025-03-04 08:03] LABS: Bilirubin, Delta 0.1 mg/dL (0.0-0.2); Bilirubin,Unconjugated 1.9 mg/dL (0.0-1.1)
--- NOTE | 2025-03-04 12:43 | P.PN ---
Progress Note - Text Progress Note Date: 03/04/25 Interval History: PAtient was seen today for psychiatric follow up. Patient had very poor eye co ntact. she continues t have child like behaviors and was fairly concrete. she appeard to be anxious. denies any overnight events. states that she wants to bedischarhed. she is denying any depression or anxiety and this time. continues t minimize. chronically Poor insight and poor judgment. denies any at this time denies any suicidal or homicidal ideations. Denies any auditory or visual hallucinations. Not reporting any side effects from medications at this time. Claims that she has been sleeping fairly up for meals. MENTAL STATUS EXAM: General Appearance: Patient appears to be stated age is alert, directable, and attempts to cooperate. Patient appears to have fair hygiene and grooming. Hair covering her face Behavior: Patient is seated without any agitated behavior. Avoidant, poor eye contact Speech: Patient's speech is fluent and nonpressured. Childlike, concrete Mood/Affect: Patient reports their mood is "better", affect is congruent and constricted. improving mildly Suicidality/Homicidality: Patient denies having any homicidal ideation intent or plan. Denies any suicidal ideations intent or plan Perceptions: Patient denies any visual hallucinations and denies any auditory hallucinations Though content/process: There is no evidence of any delusional thought content. focused on discharge. Memory and concentration: AOX3, grossly intact for the purposes of this session judgment and insight: Poor/limited chronically, improving mildly IMPRESSIONS: MDD, recurrent, moderate Generalized anxiety disorder, rule out social anxiety disorder cluster B traits Rule out autism spectrum disorder PLAN: -Patient is admitted under voluntary status to MHU for stabilization of psychiatric symptoms and safety. Patient has signed adult voluntary form and medication consent and is placed in patient's chart. -Medications : -Prozac 20 mg p.o. daily for mood/anxiety -lithium 150 mg twice daily for mood stabilization - Hydroxyzine, and Zyprexa PRN for agitation/aggression -NRT - not needed as patient does not smoke -SW on board for discharge planning. Encourage patient to participate in groups to work on coping skills. possible discharge - monday if patient is improving.
--- NOTE | 2025-03-05 10:16 | P.PN ---
Progress Note - Text Progress Note Date: 03/05/25 Interval History: PAtient was seen today for psychiatric follow up. Patient continues to have fa irly poor eye contact with underwriter solicitation director appears to to be fairly timid. Claims that her mood and anxiety is improving. Continues to be fairly concrete. States that she has not spoken with her mother yet over the phone however will try to do so today. Has been showering not going to many groups, mainly keeping herself on the unit. Has been taking medication and not reporting any side effects at this time. She continues to focus on discharge. she is denying any depression or anxiety and this time. denies any at this time denies any suicidal or homicidal ideations. Denies any auditory or visual hallucinations. Not reporting any side effects from medications at this time. Claims that she slept fairly last night. MENTAL STATUS EXAM: General Appearance: Patient appears to be stated age is alert, directable, and attempts to cooperate. Patient appears to have fair hygiene and grooming. Hair covering her face Behavior: Patient is seated without any agitated behavior, poor eye contact Speech: Patient's speech is fluent and nonpressured. Childlike, concrete, improving mildly Mood/Affect: Patient reports their mood is "better", affect is congruent and constricted. improving mildly Suicidality/Homicidality: Patient denies having any homicidal ideation intent or plan. Denies any suicidal ideations intent or plan Perceptions: Patient denies any visual hallucinations and denies any auditory hallucinations Though content/process: There is no evidence of any delusional thought content. focused on discharge. Improving mildly Memory and concentration: AOX3, grossly intact for the purposes of this session judgment and insight: Poor/limited chronically, improving mildly IMPRESSIONS: MDD, recurrent, moderate Generalized anxiety disorder, rule out social anxiety disorder cluster B traits Rule out autism spectrum disorder PLAN: -Patient is admitted under voluntary status to MHU for stabilization of psychiatric symptoms and safety. Patient has signed adult voluntary form and m edication consent and is placed in patient's chart. -Medications : -Prozac 20 mg p.o. daily for mood/anxiety -lithium 150 mg twice daily for mood stabilization -We will check lithium level tomorrow morning - Hydroxyzine, and Zyprexa PRN for agitation/aggression -NRT - not needed as patient does not smoke -SW on board for discharge planning. Encourage patient to participate in groups to work on coping skills. possible discharge tomorrow if patient is improving.
[2025-03-06 09:20] VITALS: BP 103/66; PULSE 80; RESP 20; TEMP 99
--- NOTE | 2025-03-06 11:55 | P.DS ---
Providers Date of admission: 03/01/25 16:07 Expected date of discharge: 03/06/25 Attending physician: Ernie Brown MD Consults: 03/01/25 16:09 Consult Physician Routine Consulting Provider: Sugey Ledesma Consult Reason/Comments: H and P Do you want consulting provider notified?: Yes Primary care physician: Stated None - Discharge Diagnosis(es) (1) Major depressive disorder Current Visit: Yes Status: Acute Priority: High (2) Social anxiety disorder Current Visit: Yes Status: Acute Priority: Medium (3) Cluster B personality disorder Current Visit: Yes Status: Acute Priority: Medium Hospital Course: Admission HPI: Admission note was completed by Dr Pichardo "patient is a 24 years old female with past psychiatric history of depression and social anxiety, presenting for suicidal ideation. Patient presented to the hospital for suicidal ideation, she has a history of self injurious behavior, the patient was guarded and conservative, she did not share much during assessment in the ED, reported that she has been getting worse lately. Per ED note patient is unkempt, not making eye contact, she denied any alcohol or substance use. Per EPS "the patient mother "Chriss" is her guardian at bed side, patient is A/O x 4, was tearful during assessment, states that she did not really have a choice but to come in. Reported having suicidal thoughts with no plan but has been cutting her arms, denies HI or AVH. Patient mother states patient was punching herself in the face and throwing food while saying she wanted to kill herself. Patient does not want to take medication, the patient mother has been taking the patient twice weekly in the month of January for ketamine which did not seem to be effective. Patient has also done DBT with [facility]. Upon evaluation in the unit the patient was in her room, agreed to speak with the chief underwriter in the office. She states that she came in after having an argument with her mom, and "I threaten to harm myself," and was throwing stuff. States that she did not had a plan or anything, states that "it was serious but I was frustrated." States that she used to harm herself in the past, last self harm behaviors via cutting was 6 months ago. States that it's all started after her mom asked her to with her to her grandmother house, and she was uncomfortable doing so, and she was irritated. Pt states that she has been feeling down, sad, depressed for the last yrs and it can be for weeks at a time. Reported feeling hopeless, helpless, and worthless. She rated depression at 7/10. States that she does not enjoy anything and has no hobbies. She denied any current SI/HI or self harm, denied any previous history of suicide, however reported self harm behaviors via cutting which was started when she was 14 yo, and it got worse 5 yrs ago. Sleep is good, denied any nightmares, appetite is good. She reported moderate anxiety, thinking about the past or the future, states that "I can't really change." She denied any manic or hypomanic symptoms, denied any flight of ideas racing thoughts and increased in goal directed behavior. At this time patient denies any auditory or visual hallucinations. Patient denied using any alcohol, tobacco, cannabis or any other substance. Pt states that she does not have any friends, reported that it is hard for her to make friend, pt was rocking during the meeting, avoid eye contact, patient reported that she has a routine and usually she gets frustrated and impulsive when things are not going her way. Pt states that she never been tested for learning disability or ASD. The pt was emotional and cried during evaluation, reported that she is worried about her future and if she will ever change." Hospital course: Upon admission to the unit patient was directable and agreeable to commence treatment and signed adult voluntary form. Patient was initially isolated depressed childlike behavior however with time and treatment patient got along well with other patients on the unit and followed unit protocol. Patient was compliant with the medications and denied any side effects throughout hospital course. Patient was started on Prozac increase to 20 mg daily for mood/anxiety, also started on lithium 150 mg twice daily for mood stabilization/suicidal thoughts. Patient spoke of her stressors however did not participate much in group/activity therapy and mainly kept to themselves during hospitalization. Patient was also seen by medical team for history and physical exam. Throughout the course of the hospitalization patient gradually improved with regards to mood, anxiety, suicidal thoughts, sleep and returned back to their baseline level of functioning. On the day of discharge patient denied any suicidal or homicidal ideations intent or plan denied any auditory or visual hallucinations. Patient endorsed wanting to live for their health and family. The patient de nied any access to guns or weapons. Patient denied any paranoia and did not endorse any delusions. Patient does not have a significant history of substance abuse and was counseled on abstaining from all substances including alcohol and marijuana. Patient was also counseled on the medications and need for regular compliance and was encouraged to follow-up with their outpatient appointment for mental health and also for primary care. Prior to discharge a family meeting will be arranged by oncology social worker to answer any questions and ensure safety upon discharge incuding making sure that guns/weapons are either removed from the home or locked away. Mental status exam: General Appearance: Patient appears to be thin, hair covering majority of her face, poor eye contact, stated age is alert, pleasant, and cooperative. Patient is in no acute distress and has improved hygiene and grooming Behavior: Patient is calmly seated without any agitated behavior. Attempts to cooperate Speech: Patient's speech is fluent and nonpressured. Mood/Affect: Patient reports their mood is "ok", affect is congruent Suicidality/Homicidality: Patient denies having any suicidal or homicidal ideation intent or plan. Perceptions: Patient denies any auditory or visual hallucinations. Though content/process: There is no evidence of any delusional thought content and thought process is linear and goal-directed. Memory and concentration: AOX3, grossly intact for the purposes of this session. Can spell "WORLD" backwards correctly. Judgment and insight: Chronically poor, however has improved with guarded prognosis Impression: Major depressive disorder Social anxiety disorder Cluster B personality disorder Plan: -Continue with discharge today as patient has improved and stabilized psychiatrically and is not currently an imminent threat to themself and/or others. Patient will remain at chronically elevated risk for harm to self and/or others due to their impulsivity and chronically poor insight. -Continue medications: Prozac 20 mg daily for mood/anxiety, lithium 300 mg nightly for mood stabilization/suicidal thoughts -Patient was counseled on the need for medication compliance and appropriate follow-up at mental health and also primary care for medical issues. Patient verbalized understanding and agreed. -Social work to arrange for and conduct family meeting to ensure safety upon discharge and answer any questions/concerns. also to ensure safe home environment that guns/weapons are either removed from the home or locked away. Social work also to arrange for patients follow up appointments with [facility] for psychiatric care along with follow up with primary care provider. -Patient counseled on abstaining from recreational drugs and marijuana and alcohol. Was informed/educated on the adverse effects on their physical and mental health. Patient verbally agreed and understood. -Patient was instructed to return to the hospital or seek immediate medical care if their psychiatric or medical symptoms do worsen or reoccur. Allergies Allergy/AdvReac Type Severity Reaction Status Date / Time No Known Allergies Allergy Verified 03/01/25 16:15 Laboratory Results WBC 4.62 10*3/uL (4.50-10.00) 03/02/25 07:50 RBC 3.91 10*6/uL (4.10-5.20) L 03/02/25 07:50 Hgb 12.1 g/dL (12.0-15.0) 03/02/25 07:50 Hct 36.5 % (37.2-46.3) L 03/02/25 07:50 MCV 93.4 fL (80.0-97.0) 03/02/25 07:50 MCH 30.9 pg (27.0-32.0) 03/02/25 07:50 MCHC 33.2 g/dL (32.0-37.0) 03/02/25 07:50 Plt Count 291 10*3/uL (140-440) 03/02/25 07:50 MPV 9.3 fL (9.5-12.2) L 03/02/25 07:50 Immature Gran % (Auto) 0.2 % 03/02/25 07:50 Neutrophils % 62.3 % 03/02/25 07:50 Lymphocytes % 26.2 % 03/02/25 07:50 Monocytes % 8.0 % 03/02/25 07:50 Eosinophils % 2.4 % 03/02/25 07:50 Basophils % 0.9 % 03/02/25 07:50 Immature Gran # 0.01 10*3/uL (0.00-0.04) 03/02/25 07:50 Neutrophils # 2.88 10*3/uL (1.80-7.70) 03/02/25 07:50 Lymphocytes # 1.21 10*3/uL (0.90-5.00) 03/02/25 07:50 Monocytes # 0.37 10*3/uL (0.20-1.00) 03/02/25 07:50 Eosinophils # 0.11 10*3/uL (0.04-0.35) 03/02/25 07:50 Basophils # 0.04 10*3/uL (0.00-0.10) 03/02/25 07:50 Sodium 139 mmol/L (137-145) 03/02/25 07:50 Potassium 4.5 mmol/L (3.5-5.1) 03/02/25 07:50 Chloride 104 mmol/L (98-107) 03/02/25 07:50 Carbon Dioxide 27 mmol/L (22-30) 03/02/25 07:50 Anion Gap 8 mmol/L 03/02/25 07:50 BUN 11 mg/dL (7-17) 03/02/25 07:50 Creatinine 0.72 mg/dL (0.52-1.04) 03/02/25 07:50 Est GFR (CKD-EPI)AfAm >90 (>60 ml/min/1.73 sqM) 03/02/25 07:50 Est GFR (CKD-EPI)NonAf >90 (>60 ml/min/1.73 sqM) 03/02/25 07:50 Glucose 88 mg/dL (74-99) 03/02/25 07:[address] Glu mg/dL 91 mg/dL 03/02/25 07:50 Hemoglobin A1c 4.8 % (<=6.0) 03/02/25 07:50 Calcium 9.6 mg/dL (8.4-10.2) 03/02/25 07:50 Total Bilirubin 2.0 mg/dL (0.2-1.3) H 03/04/25 07:07 Conjugated Bilirubin 0.0 mg/dL (0.0-0.3) 03/04/25 07:07 Unconjugated Bilirubin 1.9 mg/dL (0.0-1.1) H 03/04/25 07:07 Delta Bilirubin 0.1 mg/dL (0.0-0.2) 03/04/25 07:07 AST 17 U/L (14-36) 03/02/25 07:50 ALT 12 U/L (4-34) 03/02/25 07:50 Alkaline Phosphatase 51 U/L (38-126) 03/02/25 07:50 Total Protein 7.6 g/dL (6.3-8.2) 03/02/25 07:50 Albumin 4.8 g/dL (3.5-5.0) 03/02/25 07:50 Triglycerides 45.00 mg/dL (0.00-149.00) 03/02/25 07:50 Cholesterol 168.00 mg/dL (0.00-200.00) 03/02/25 07:50 LDL Cholesterol, Calc 99.3 mg/dL (0.0-131.0) 03/02/25 07:50 VLDL Cholesterol, Calc 9.00 mg/dL (5.00-40.00) 03/02/25 07:50 HDL Cholesterol 59.70 mg/dL (40.00-60.00) 03/02/25 07:50 Cholesterol/HDL Ratio 2.81 Ratio 03/02/25 07:50 TSH 1.080 mIU/L (0.465-4.680) 03/02/25 07:50 Urine Color Colorless 03/01/25 13:35 Urine Appearance Clear (Clear) 03/01/25 13:35 Urine pH 7.5 (5.0-8.0) 03/01/25 13:35 Ur Specific [place] 1.006 (1.001-1.035) 03/01/25 13:35 Urine Protein Negative (Negative) 03/01/25 13:35 Urine Glucose (UA) Negative (Negative) 03/01/25 13:35 Urine Ketones Negative (Negative) 03/01/25 13:35 Urine Blood Negative (Negative) 03/01/25 13:35 Urine Nitrite Negative (Negative) 03/01/25 13:35 Urine Bilirubin Negative (Negative) 03/01/25 13:35 Urine Urobilinogen <2.0 mg/dL (<2.0) 03/01/25 13:35 Ur Leukocyte Esterase Negative (Negative) 03/01/25 13:35 Urine Opiates Screen Not Detected (NotDetected) 03/01/25 13:35 Ur Oxycodone Screen Not Detected (NotDetected) 03/01/25 13:35 Urine Methadone Screen Not Detected (NotDetected) 03/01/25 13:35 Ur Barbiturates Screen Not Detected (NotDetected) 03/01/25 13:35 U Tricyclic Antidepress Not Detected (NotDetected) 03/01/25 13:35 Ur Phencyclidine Scrn Not Detected (NotDetected) 03/01/25 13:35 Ur Amphetamines Screen Not Detected (NotDetected) 03/01/25 13:35 U Methamphetamines Scrn Not Detected (NotDetected) 03/01/25 13:35 U Benzodiazepines Scrn Not Detected (NotDetected) 03/01/25 13:35 Urine Cocaine Screen Not Detected (NotDetected) 03/01/25 13:35 U Marijuana (THC) Screen Not Detected (NotDetected) 03/01/25 13:35 SARS-CoV-2 (PCR) Not Detected (Not Detectd) 03/01/25 14:51 Vital Signs Temp 99 F 03/06/25 09:00 Pulse 80 03/06/25 09:00 Resp 20 03/06/25 09:00 BP 103/66 03/06/25 09:00 Pulse Ox 99 03/06/25 09:00 FiO2 Patient Condition at Discharge: Stable Plan - Discharge Summary Discharge Rx Participant: No New Discharge Prescriptions: New hydrOXYzine HCL [Atarax] 25 mg PO DAILY PRN 30 Days #30 tab PRN Reason: Anxiety FLUoxetine HCL [PROzac] 20 mg PO DAILY 30 Days #30 cap Acetaminophen Tab [Tylenol] 650 mg PO Q4HR PRN tab PRN Reason: Mild Pain (Scale 1 To 3) [place] Carbonate 300 mg PO HS 30 Days #30 capsule Discharge Medication List Acetaminophen Tab [Tylenol] 650 mg PO Q4HR PRN tab 03/06/25 [Rx] FLUoxetine HCL [PROzac] 20 mg PO DAILY 30 Days #30 cap 03/06/25 [Rx] [place] Carbonate 300 mg PO HS 30 Days #30 capsule 03/06/25 [Rx] hydrOXYzine HCL [Atarax] 25 mg PO DAILY PRN 30 Days #30 tab 03/06/25 [Rx] Follow up Appointment(s)/Referral(s): [facility] - [facility] Week [facility] [NON-STAFF] - 03/07/25 1:00 pm (Mother needs to accompany pt to appointment with guardianship papers. Intake: Hanane Ivory/25/25 @ 1:00 pm) Patient Instructions/Handouts: Depression (DC), Anxiety (ED) Activity/Diet/Wound Care/Special Instructions: [facility] Discharge Info Avoid the use of street drugs and alcohol. Take all medications as prescribed. When you are in need of refills on your medications, please contact your outpatient medical provider and/or outpatient psychiatrist. Please go to your scheduled outpatient appointments for aftercare treatment. If symptoms return or become worse, call the crisis line at or and/or visit the nearest emergency room for assistance. [place] Suicide and Crisis Lifeline - call or text [phone].Medical physician recommends to follow up outpatient in 4-6 weeks to have thyroid levels checked again. Recommendations to have an EMG outpatient on bilateral upper extremities for probable bilateral carpal tunnel. Discharge Disposition: HOME SELF-CARE
== END 2025-03-06 15:55 | disposition home or self-care (01) | DRG 751 ==
LOC: EC 12:28 → 3MHU 16:07
PROVIDERS: ADMIT Psychiatry & Neurology Psychiatry; ATTEND Psychiatry & Neurology Psychiatry
DX: F33.1 Major depressive disorder, recurrent, moderate (principal); F40.10 Social phobia, unspecified; F41.1 Generalized anxiety disorder; F60.89 Other specific personality disorders; R17 Unspecified jaundice; R45.851 Suicidal ideations; Z79.899 Other long term (current) drug therapy; Z81.8 Family history of other mental and behavioral disorders; Z91.148 Patient's other noncompliance with medication regimen for other reason; Z91.52 Personal history of nonsuicidal self-harm; Z11.52 Encounter for screening for COVID-19
CPT/HCPCS: 80053; 80061; 80178; 80306; 81003; 82075; 82248; 83036; 84443; 85025; 87635; 99285